=== PATIENT | male | born 1935 | race Caucasian/White ===

== ENCOUNTER 2016-09-05 14:55 | Emergency (ER) | payer MEDICARE, BC ==
--- NOTE | 2016-09-05 22:02 | RAD ---
PA CHEST WITH LEFT RIBS 09/05/16 Comparison is made with the 05/24/16 portable chest film. The heart is normal in size. Dense calcification is seen in the aortic arch. There is no vascular co ngestion, edema, pleural effusion, or pneumothorax. Old fractures of the left fourth and fifth poste rior ribs are noted. There is a fracture of the left sixth rib posteriorly that looks like it may be more acute and I cannot definitely see it on the May film. Old rib fractures are seen in some of the lower left ribs. Degenerative changes are prominent in the left glenohumeral joint. IMPRESSION: Multiple old rib fractures but possibly one acute fracture of the left sixth rib posteriorly. Correl ate with exact site of clinical pain. POS: HOME
== END 2016-09-05 16:10 | disposition home or self-care (01) ==
LOC: BURERS 14:55
DX: S22.42XA Multiple fractures of ribs, left side, initial encounter for closed fracture (principal); F32.9 Major depressive disorder, single episode, unspecified; W19.XXXA Unspecified fall, initial encounter

== ENCOUNTER 2016-10-27 09:20 | Outpatient (CLI) | payer MEDICARE, BC | END 2016-10-27 09:21 | disposition home or self-care (01) | LOC: BURLAB 09:20 | PROVIDERS: ATTEND Internal Medicine Hematology & Oncology | DX: C61 Malignant neoplasm of prostate (principal) | CPT/HCPCS: 36415; 84153 ==

== ENCOUNTER 2017-03-17 19:17 | Outpatient (CLI) | payer MEDICARE, BC | END 2017-03-17 19:18 | disposition home or self-care (01) | LOC: BURLAB 19:17 | PROVIDERS: ATTEND Physician Assistant | DX: N39.0 Urinary tract infection, site not specified (principal) | CPT/HCPCS: 87086 ==

== ENCOUNTER 2017-06-10 13:33 | Emergency (ER) | payer MEDICARE, BC ==
[2017-06-10] MEDS ORDERED: Ondansetron HCl/PF 4 MG/2 ML Vial ONE (13:57)
[2017-06-10 14:07] LABS: #Basophils 0.1 thou/uL (0.0-0.2); #Eosinphils 0.2 thou/uL (0.0-0.7); #Lymphocytes 0.6 thou/uL (1.20-3.40); #Monocytes 0.6 thou/uL (0.11-0.59); #Neutrophils 11.8 thou/uL (1.40-6.50); %Basophils 0.5 % (0.0-1.0); %Eosinophils 1.8 % (0.0-10.0); %Lymphocytes 4.6 % (21.0-51.0); %Monocytes 4.1 % (0.0-10.0); %Neutrophils 89.1 % (42.0-75.0); Hemoglobin 15.7 g/dL (14.0-18.0); Mean Corpuscular HGB CONC 31.7 g/dL (32.0-36.0); Mean Corpuscular Hemoglobin 31.4 pg (27.0-31.0); Mean Corpuscular Volume 98.9 fl (80.0-94.0); Mean Platelet Volume 7.8 fL (7.4-10.4); Platelet Count 183 thou/uL (130-400); RBC Distribution Width 12.9 % (11.5-14.5); White Blood Cell (WBC) Count 13.3 thou/uL (4.8-10.8)
[2017-06-10 14:17] LABS: ALT (SGPT) 18 U/L (8-55); AST (SGOT) 19 U/L (5-34); Alkaline Phosphatase 60 U/L (40-150); Anion Gap 17 mmol/L (10-20); BUN (Urea Nitrogen) 24 mg/dL (8.4-25.7); Bilirubin, Total 0.8 mg/dL (0.2-1.2); Calc. Creatinine Clearance 0 mL/min (70-130); Calcium 9.4 mg/dL (7.8-10.44); Carbon Dioxide 28 mmol/L (23-31); Chloride 100 mmol/L (98-107); Estimated GFR-MDRD 60; Globulin 2.7 g/dL (2.4-3.5); Glucose 165 mg/dL (83-110); Potassium 4.1 mmol/L (3.5-5.1); Protein, Total 6.7 g/dL (5.8-8.1); Sodium 141 mmol/L (136-145)
[2017-06-10 14:19] LABS: CKMB 1.2 ng/mL (0-6.6); Troponin I Less than 0.010 ng/mL (< 0.028)
[2017-06-10 16:07] LABS: Bilirubin Negative (Negative); Blood, Urine Trace (Negative); Clarity Slightly Cloudy (Clear); Glucose, Urine (Dipstick) Negative (Negative); Leukocyte Trace (Negative); Nitrite Negative (Negative); Protein, Urine (Dipstick) 30 mg/dL (Neg-Trace); Specific Gravity, Urine 1.025 (1.005-1.030); Urobilinogen 0.2 mg/dL (0.2-1.0)
[2017-06-10 16:15] LABS: Bacteria/HPF 1+ HPF (None Seen); Crystals/HPF None Seen HPF (Negative); Hyaline Casts/LPF NONE SEEN LPF (0-3 Hyaline); Other Casts/LPF None Seen LPF (0-3 Hyaline); Oval Fat Bodies/HPF None Seen HPF (None Seen); RBC/HPF 0-3 HPF (0-3); Renal Epithelial None Seen HPF (0-3); Sperm/HPF None Seen HPF (None Seen); Squamous Epithelial 0-3 HPF (0-3); Transitional Epithelial NONE SEEN HPF (0-3); Trichomonas/HPF None Seen HPF (None Seen); Yeast-All Forms None Seen HPF (None Seen)
== END 2017-06-10 17:15 | disposition home or self-care (01) ==
LOC: BURERS 13:33
DX: K52.9 Noninfective gastroenteritis and colitis, unspecified (principal); J44.9 Chronic obstructive pulmonary disease, unspecified; F32.9 Major depressive disorder, single episode, unspecified; Z79.899 Other long term (current) drug therapy
CPT/HCPCS: 80053; 81003; 81015; 82553; 84484; 85025; 87077; 87086; 87186; 96361; 96374; J2405

== ENCOUNTER 2017-08-02 20:02 | Emergency (ER) | payer MEDICARE, BC ==
[2017-08-02] MEDS ORDERED: Lidocaine 1% w/Epinephrine 1:100K 30 ML VIAL ONE (20:26)
--- NOTE | 2017-08-02 21:35 | CT ---
CT BRAIN WITHOUT CONTRAST: Date: 08-02-[address] was done and compared with a prior scan of 05-31-13. FINDINGS: The ventricles are normal in size for age and show no shift. No intracranial bleeding or extraaxial h ematoma was seen. There is some minimal deep white matter lucency consistent with mild chronic ischem ic changes. There were no findings of acute stroke, mass, or edema. The calvarium appears intact. The sphenoid sinus and mastoid air cells are clear. The patient has a r ounded cyst in this floor of his left maxillary sinus. IMPRESSION: No acute intracranial finding. POS: HOME
[2017-08-02 21:45] LABS: Bilirubin Negative (Negative); Blood, Urine Negative (Negative); Clarity Clear (Clear); Glucose, Urine (Dipstick) Negative (Negative); Leukocyte Negative (Negative); Nitrite Negative (Negative); Protein, Urine (Dipstick) Negative (Neg-Trace); Specific Gravity, Urine 1.015 (1.005-1.030); Urobilinogen 0.2 mg/dL (0.2-1.0)
--- NOTE | 2017-08-02 21:59 | RAD ---
PORTABLE CHEST: Date: 08-02-17 Comparison: 06-10-17 FINDINGS: The heart is normal in size on this portable film done at 2026. The mediastinum shows no widening or shift. The lungs are fully inflated and clear. No effusions or infiltrates were seen. No gross acute fractures were indicated. Old healed rib fractures of the left ribs were noted as before. Degenerativ e changes are present in the shoulders, particularly the right. IMPRESSION: No acute thoracic finding. POS: HOME
[2017-08-02] MEDS ORDERED: Bacitracin Zinc 1 Packet ONE (22:04)
== END 2017-08-02 22:18 | disposition home or self-care (01) ==
LOC: BURERS 20:02
DX: S01.111A Laceration without foreign body of right eyelid and periocular area, initial encounter (principal); T14.8XXA Other injury of unspecified body region, initial encounter; I10 Essential (primary) hypertension; J44.9 Chronic obstructive pulmonary disease, unspecified; M10.9 Gout, unspecified; F32.9 Major depressive disorder, single episode, unspecified; Z85.46 Personal history of malignant neoplasm of prostate; Z79.52 Long term (current) use of systemic steroids; Z79.899 Other long term (current) drug therapy; W01.0XXA Fall on same level from slipping, tripping and stumbling without subsequent striking against object, initial encounter; Y93.01 Activity, walking, marching and hiking
CPT/HCPCS: 51701; 70450; 71045; 81003; 87086; 90471; J2001

== ENCOUNTER 2017-11-29 08:55 | Outpatient (CLI) | payer MEDICARE, BC ==
--- NOTE | 2017-11-29 19:40 | RAD ---
RIGHT RIBS WITH PA CHEST: Date: 11/29/17 Comparison is made with the 08/02/17 study. FINDINGS: The heart is normal in size. The mediastinum shows no widening or shift. The lungs are fully inflated and clear. There is no sign of pneumothorax or significant pleural effusion. Views of the right ribs fail to demonstrate a definite rib fracture. There is a small amount of pleur al thickening along the right lateral hemithorax that can sometimes be a secondary sign of an occult rib injury. There is a little irregularity of the cortex of the right 7th rib, but it is not definite ly acute. IMPRESSION: No definite acute thoracic findings. POS: HOME
== END 2017-11-29 08:56 | disposition home or self-care (01) ==
LOC: BURRAD 08:55
PROVIDERS: ATTEND Family Medicine
DX: R07.81 Pleurodynia (principal)

== ENCOUNTER 2018-02-04 07:34 | Emergency (ER) | payer MEDICARE, BC ==
--- NOTE | 2018-02-04 12:58 | RAD ---
CHEST 2 VIEWS: Date: 02/04/18 Comparison is made with a prior study of 11/29/17. FINDINGS: The heart is normal in size. The mediastinum shows no widening or shift. The aorta is tortuous and ca lcified as usual. There are no lobar infiltrates or effusions. The lungs are mildly hyperexpanded. On the lateral view, one of the mid thoracic vertebra seems very slightly compressed, but looking back at a 2012 chest x-ray, it was exactly the same, so this is not a new finding. There is prominent pleural thickening along the left lateral chest wall. This is seen on a more recen t film of 11/29/17, so it is not new. There appear to have been old rib fractures on the left which h ave healed. Subtle acute fractures would be missed by this study. There is certainly no pneumothorax or significant pleural effusion. IMPRESSION: Chronic changes, but no definite acute findings. Subtle rib fractures would be missed. POS: [facility]
== END 2018-02-04 08:39 | disposition home or self-care (01) ==
LOC: BURERS 07:34
DX: S20.212A Contusion of left front wall of thorax, initial encounter (principal); J44.9 Chronic obstructive pulmonary disease, unspecified; I47.1 Supraventricular tachycardia; I10 Essential (primary) hypertension; F32.9 Major depressive disorder, single episode, unspecified; Z79.899 Other long term (current) drug therapy; W19.XXXA Unspecified fall, initial encounter
CPT/HCPCS: 71046; 93005; 94799

== ENCOUNTER 2018-04-21 13:12 | Inpatient (IN) | payer MEDICARE, BC ==
[2018-04-21] MEDS ORDERED: Ondansetron ODT 4 MG TAB PO PRN (16:46)
[2018-04-21] MEDS ORDERED: PROVENTIL INHALER 6.7 G (200 INHALATIONS) INH PRN (16:46)
[2018-04-21] MEDS ORDERED: Cyclobenzaprine 10 MG TAB PO PRN (16:46)
[2018-04-21] MEDS ORDERED: Gabapentin 100 MG CAP PO PRN (17:09)
[2018-04-21] MEDS ORDERED: Mometasone/Formoterol 60 PUFF AER INH PRN (17:30)
[2018-04-21] MEDS: Acetaminophen 500 MG TAB PO SCH ×2 (18:14→22:34)
[2018-04-21] MEDS ORDERED: traMADol HCl 50 MG TAB PO SCH (21:00)
[2018-04-21] MEDS ORDERED: Gabapentin 100 MG CAP PO SCH (21:00)
[2018-04-21] MEDS: Ferrous Sulfate 325 MG TAB PO SCH (21:02)
[2018-04-21] MEDS: traMADol HCl 50 MG TAB PO SCH (21:04)
[2018-04-21] MEDS: Famotidine 20 MG TAB PO SCH (21:05)
[2018-04-21] MEDS: Senokot S 8.6-50 MG TAB PO SCH (21:05)
[2018-04-21] MEDS: Ibuprofen 800 MG TAB PO SCH (22:32)
[2018-04-22] MEDS ORDERED: traMADol HCl 50 MG TAB ONE (03:25)
[2018-04-22] MEDS ORDERED: Abiraterone Acetate [Zytiga] 1,000 MG PO SCH (09:00)
[2018-04-22 11:31] LABS: #Basophils 0.1 thou/uL (0.0-0.2); #Eosinphils 0.6 thou/uL (0.0-0.7); #Lymphocytes 0.9 thou/uL (1.20-3.40); #Monocytes 0.9 thou/uL (0.11-0.59); #Neutrophils 4.9 thou/uL (1.40-6.50); %Basophils 1.2 % (0.0-1.0); %Eosinophils 8.2 % (0.0-10.0); %Lymphocytes 12.1 % (21.0-51.0); %Monocytes 12.3 % (0.0-10.0); %Neutrophils 66.2 % (42.0-75.0); Hemoglobin 10.8 g/dL (14.0-18.0); Mean Corpuscular HGB CONC 32.1 g/dL (32.0-36.0); Mean Corpuscular Hemoglobin 30.5 pg (27.0-31.0); Mean Corpuscular Volume 95.1 fL (78.0-98.0); Mean Platelet Volume 8.6 fL (7.4-10.4); Platelet Count 139 thou/uL (130-400); RBC Distribution Width 12.9 % (11.5-14.5); Red Blood Cell (RBC) Count 3.56 mill/uL (4.70-6.10); White Blood Cell (WBC) Count 7.5 thou/uL (4.8-10.8)
[2018-04-22 11:32] LABS: ALT (SGPT) 19 U/L (8-55); AST (SGOT) 19 U/L (5-34); Albumin 3.3 g/dL (3.4-4.8); Alkaline Phosphatase 63 U/L (40-150); Anion Gap 10 mmol/L (10-20); BUN (Urea Nitrogen) 25 mg/dL (8.4-25.7); Bilirubin, Total 0.7 mg/dL (0.2-1.2); Calc. Creatinine Clearance 98 mL/min (70-130); Calcium 9.5 mg/dL (7.8-10.44); Carbon Dioxide 35 mmol/L (23-31); Chloride 95 mmol/L (98-107); Estimated GFR-MDRD Greater than 90; Globulin 2.4 g/dL (2.4-3.5); Glucose 103 mg/dL (83-110); Potassium 5.3 mmol/L (3.5-5.1); Protein, Total 5.7 g/dL (5.8-8.1); Sodium 135 mmol/L (136-145)
[2018-04-22] MEDS: Polyethylene Glycol 3350 17 GM Packet PO SCH (11:35)
[2018-04-22] MEDS ORDERED: traMADol HCl 50 MG TAB PO PRN (11:35)
[2018-04-22] MEDS: Loratadine 10 MG TAB PO SCH (11:36)
[2018-04-22] MEDS: Senokot 8.6 MG TAB PO SCH (11:36)
[2018-04-22] MEDS: predniSONE 10 MG TAB PO SCH (11:37)
[2018-04-22] MEDS: Multivit, Therapeutic 1 TAB PO SCH (11:37)
[2018-04-22] MEDS: Venlafaxine XR 37.5 MG CAP PO SCH (11:38)
[2018-04-22] MEDS: Famotidine 20 MG TAB PO SCH ×2 (11:38→21:06)
[2018-04-22] MEDS: Allopurinol 100 MG TAB PO SCH (11:38)
[2018-04-22] MEDS: Enoxaparin Sodium 40 MG/0.4 ML SYRINGE SC SCH (11:40)
[2018-04-22] MEDS: Ibuprofen 800 MG TAB PO SCH ×3 (11:51→21:06)
[2018-04-22] MEDS: Acetaminophen 500 MG TAB PO SCH ×3 (11:53→18:25)
[2018-04-22] MEDS: traMADol HCl 50 MG TAB PO SCH (11:55)
[2018-04-22] MEDS: Abiraterone Acetate [Zytiga] 1,000 MG PO SCH (14:54)
[2018-04-22] MEDS: Calcium Carbonate + Vit D 1 TAB PO SCH (14:57)
[2018-04-22] MEDS: diphenhydrAMINE 25 MG CAP PO SCH (21:06)
[2018-04-22] MEDS: Senokot S 8.6-50 MG TAB PO SCH (21:07)
[2018-04-22] MEDS: Ferrous Sulfate 325 MG TAB PO SCH (21:07)
[2018-04-23] MEDS: Acetaminophen 500 MG TAB PO SCH ×4 (00:17→19:15)
[2018-04-23] MEDS: Ibuprofen 800 MG TAB PO SCH ×3 (06:18→21:03)
[2018-04-23] MEDS: Venlafaxine XR 37.5 MG CAP PO SCH (09:58)
[2018-04-23] MEDS: Senokot 8.6 MG TAB PO SCH (09:58)
[2018-04-23] MEDS: Allopurinol 100 MG TAB PO SCH (09:59)
[2018-04-23] MEDS: Calcium Carbonate + Vit D 1 TAB PO SCH (09:59)
[2018-04-23] MEDS: Multivit, Therapeutic 1 TAB PO SCH (09:59)
[2018-04-23] MEDS: Loratadine 10 MG TAB PO SCH (10:00)
[2018-04-23] MEDS: Famotidine 20 MG TAB PO SCH ×2 (10:00→21:02)
[2018-04-23] MEDS: predniSONE 10 MG TAB PO SCH (10:00)
[2018-04-23] MEDS: Polyethylene Glycol 3350 17 GM Packet PO SCH (10:01)
[2018-04-23] MEDS: Enoxaparin Sodium 40 MG/0.4 ML SYRINGE SC SCH (10:04)
[2018-04-23] MEDS: Abiraterone Acetate [Zytiga] 1,000 MG PO SCH (14:30)
[2018-04-23] MEDS: Senokot S 8.6-50 MG TAB PO SCH (21:02)
[2018-04-23] MEDS: diphenhydrAMINE 25 MG CAP PO SCH (21:02)
[2018-04-23] MEDS: Ferrous Sulfate 325 MG TAB PO SCH (21:05)
[2018-04-24] MEDS: Acetaminophen 500 MG TAB PO SCH ×4 (00:08→18:34)
[2018-04-24] MEDS: Ibuprofen 800 MG TAB PO SCH (05:37)
[2018-04-24] MEDS: Polyethylene Glycol 3350 17 GM Packet PO SCH (09:06)
[2018-04-24] MEDS: Calcium Carbonate + Vit D 1 TAB PO SCH (09:06)
[2018-04-24] MEDS: Enoxaparin Sodium 40 MG/0.4 ML SYRINGE SC SCH (09:06)
[2018-04-24] MEDS: Venlafaxine XR 37.5 MG CAP PO SCH (09:07)
[2018-04-24] MEDS: Multivit, Therapeutic 1 TAB PO SCH (09:08)
[2018-04-24] MEDS: Senokot 8.6 MG TAB PO SCH (09:08)
[2018-04-24] MEDS: Allopurinol 100 MG TAB PO SCH (09:08)
[2018-04-24] MEDS: predniSONE 10 MG TAB PO SCH (09:08)
[2018-04-24] MEDS: Loratadine 10 MG TAB PO SCH (09:08)
[2018-04-24] MEDS: Famotidine 20 MG TAB PO SCH ×2 (09:09→21:42)
[2018-04-24] MEDS: Ibuprofen 200 MG TAB PO SCH ×2 (14:51→21:42)
[2018-04-24] MEDS: Abiraterone Acetate [Zytiga] 1,000 MG PO SCH (14:52)
[2018-04-24] MEDS: Senokot S 8.6-50 MG TAB PO SCH (21:42)
[2018-04-24] MEDS: diphenhydrAMINE 25 MG CAP PO SCH (21:42)
[2018-04-24] MEDS: Ferrous Sulfate 325 MG TAB PO SCH (21:42)
[2018-04-25] MEDS: Acetaminophen 500 MG TAB PO SCH ×5 (01:17→22:57)
[2018-04-25 05:50] LABS: #Basophils 0.1 thou/uL (0.0-0.2); #Eosinphils 0.6 thou/uL (0.0-0.7); #Lymphocytes 1.7 thou/uL (1.20-3.40); #Monocytes 0.9 thou/uL (0.11-0.59); #Neutrophils 6.1 thou/uL (1.40-6.50); %Eosinophils 6.7 % (0.0-10.0); %Lymphocytes 17.6 % (21.0-51.0); %Monocytes 9.7 % (0.0-10.0); Hemoglobin 12.1 g/dL (14.0-18.0); Mean Corpuscular HGB CONC 31.8 g/dL (32.0-36.0); Mean Corpuscular Hemoglobin 30.6 pg (27.0-31.0); Mean Corpuscular Volume 96.3 fL (78.0-98.0); Mean Platelet Volume 8.2 fL (7.4-10.4); Platelet Count 259 thou/uL (130-400); RBC Distribution Width 13.1 % (11.5-14.5); Red Blood Cell (RBC) Count 3.96 mill/uL (4.70-6.10); White Blood Cell (WBC) Count 9.4 thou/uL (4.8-10.8)
[2018-04-25 06:25] LABS: BUN (Urea Nitrogen) 17 mg/dL (8.4-25.7); Bilirubin, Total 0.5 mg/dL (0.2-1.2); Calc. Creatinine Clearance 93 mL/min (70-130); Calcium 9.5 mg/dL (7.8-10.44); Carbon Dioxide 35 mmol/L (23-31); Chloride 97 mmol/L (98-107); Estimated GFR-MDRD 84; Glucose 98 mg/dL (83-110); Potassium 4.6 mmol/L (3.5-5.1); Sodium 139 mmol/L (136-145)
[2018-04-25 06:26] LABS: ALT (SGPT) 20 U/L (8-55); AST (SGOT) 17 U/L (5-34); Albumin 3.6 g/dL (3.4-4.8); Alkaline Phosphatase 132 U/L (40-150); Globulin 2.6 g/dL (2.4-3.5); Protein, Total 6.2 g/dL (5.8-8.1)
[2018-04-25 06:27] LABS: Anion Gap 11 mmol/L (10-20)
[2018-04-25] MEDS: Ibuprofen 200 MG TAB PO SCH ×3 (06:41→22:54)
[2018-04-25] MEDS: Allopurinol 100 MG TAB PO SCH (09:31)
[2018-04-25] MEDS: Venlafaxine XR 37.5 MG CAP PO SCH (09:32)
[2018-04-25] MEDS: predniSONE 10 MG TAB PO SCH (09:32)
[2018-04-25] MEDS: Polyethylene Glycol 3350 17 GM Packet PO SCH (09:32)
[2018-04-25] MEDS: Famotidine 20 MG TAB PO SCH ×2 (09:32→21:03)
[2018-04-25] MEDS: Multivit, Therapeutic 1 TAB PO SCH (09:32)
[2018-04-25] MEDS: Senokot 8.6 MG TAB PO SCH (09:32)
[2018-04-25] MEDS: Loratadine 10 MG TAB PO SCH (09:32)
[2018-04-25] MEDS: Enoxaparin Sodium 40 MG/0.4 ML SYRINGE SC SCH (09:32)
[2018-04-25] MEDS: Calcium Carbonate + Vit D 1 TAB PO SCH (09:32)
[2018-04-25] MEDS: Abiraterone Acetate [Zytiga] 1,000 MG PO SCH (15:20)
[2018-04-25] MEDS: diphenhydrAMINE 25 MG CAP PO SCH (20:58)
[2018-04-25] MEDS: Senokot S 8.6-50 MG TAB PO SCH (20:58)
[2018-04-25] MEDS: Ferrous Sulfate 325 MG TAB PO SCH (20:59)
[2018-04-26] MEDS: Acetaminophen 500 MG TAB PO SCH ×3 (05:57→17:42)
[2018-04-26] MEDS: Ibuprofen 200 MG TAB PO SCH ×4 (06:03→21:31)
[2018-04-26] MEDS: Venlafaxine XR 37.5 MG CAP PO SCH (08:33)
[2018-04-26] MEDS: Senokot 8.6 MG TAB PO SCH (08:33)
[2018-04-26] MEDS: Allopurinol 100 MG TAB PO SCH (08:33)
[2018-04-26] MEDS: Calcium Carbonate + Vit D 1 TAB PO SCH (08:33)
[2018-04-26] MEDS: predniSONE 10 MG TAB PO SCH (08:34)
[2018-04-26] MEDS: Multivit, Therapeutic 1 TAB PO SCH (08:34)
[2018-04-26] MEDS: Polyethylene Glycol 3350 17 GM Packet PO SCH (08:34)
[2018-04-26] MEDS: Loratadine 10 MG TAB PO SCH (08:34)
[2018-04-26] MEDS: Famotidine 20 MG TAB PO SCH ×2 (08:34→21:30)
[2018-04-26] MEDS: Enoxaparin Sodium 40 MG/0.4 ML SYRINGE SC SCH (08:34)
[2018-04-26] MEDS ORDERED: Furosemide 20 MG TAB PO SCH (12:00)
[2018-04-26] MEDS: Abiraterone Acetate [Zytiga] 250 MG PO SCH (14:43)
[2018-04-26] MEDS: Senokot S 8.6-50 MG TAB PO SCH (21:30)
[2018-04-26] MEDS: diphenhydrAMINE 25 MG CAP PO SCH (21:31)
[2018-04-26] MEDS: Ferrous Sulfate 325 MG TAB PO SCH (21:31)
[2018-04-27] MEDS: Acetaminophen 500 MG TAB PO SCH ×4 (02:57→17:37)
[2018-04-27] MEDS: Ibuprofen 200 MG TAB PO SCH ×3 (05:54→21:24)
[2018-04-27] MEDS: Polyethylene Glycol 3350 17 GM Packet PO SCH (09:33)
[2018-04-27] MEDS: Venlafaxine XR 37.5 MG CAP PO SCH (09:33)
[2018-04-27] MEDS: Calcium Carbonate + Vit D 1 TAB PO SCH (09:34)
[2018-04-27] MEDS: Senokot 8.6 MG TAB PO SCH (09:34)
[2018-04-27] MEDS: Allopurinol 100 MG TAB PO SCH (09:35)
[2018-04-27] MEDS: Multivit, Therapeutic 1 TAB PO SCH (09:36)
[2018-04-27] MEDS: Loratadine 10 MG TAB PO SCH (09:36)
[2018-04-27] MEDS: predniSONE 10 MG TAB PO SCH (09:36)
[2018-04-27] MEDS: Enoxaparin Sodium 40 MG/0.4 ML SYRINGE SC SCH (09:38)
[2018-04-27] MEDS: Furosemide 20 MG TAB PO SCH (09:38)
[2018-04-27] MEDS: Famotidine 20 MG TAB PO SCH ×2 (09:38→21:24)
[2018-04-27] MEDS: Abiraterone Acetate [Zytiga] 250 MG PO SCH (13:57)
[2018-04-27] MEDS: Ferrous Sulfate 325 MG TAB PO SCH (21:24)
[2018-04-27] MEDS: Senokot S 8.6-50 MG TAB PO SCH (21:24)
[2018-04-27] MEDS: diphenhydrAMINE 25 MG CAP PO SCH (21:24)
[2018-04-28] MEDS: Acetaminophen 500 MG TAB PO SCH ×5 (02:18→23:42)
[2018-04-28] MEDS: Ibuprofen 200 MG TAB PO SCH ×3 (05:52→21:25)
[2018-04-28] MEDS: Allopurinol 100 MG TAB PO SCH (09:17)
[2018-04-28] MEDS: Venlafaxine XR 37.5 MG CAP PO SCH (09:17)
[2018-04-28] MEDS: Senokot 8.6 MG TAB PO SCH (09:18)
[2018-04-28] MEDS: predniSONE 10 MG TAB PO SCH (09:19)
[2018-04-28] MEDS: Loratadine 10 MG TAB PO SCH (09:19)
[2018-04-28] MEDS: Famotidine 20 MG TAB PO SCH ×2 (09:19→21:25)
[2018-04-28] MEDS: Furosemide 20 MG TAB PO SCH (09:19)
[2018-04-28] MEDS: Calcium Carbonate + Vit D 1 TAB PO SCH (09:19)
[2018-04-28] MEDS: Polyethylene Glycol 3350 17 GM Packet PO SCH (09:20)
[2018-04-28] MEDS: Enoxaparin Sodium 40 MG/0.4 ML SYRINGE SC SCH (09:20)
[2018-04-28] MEDS: Multivit, Therapeutic 1 TAB PO SCH (09:20)
[2018-04-28] MEDS: Abiraterone Acetate [Zytiga] 250 MG PO SCH (14:28)
[2018-04-28] MEDS: Senokot S 8.6-50 MG TAB PO SCH (21:25)
[2018-04-28] MEDS: diphenhydrAMINE 25 MG CAP PO SCH (21:25)
[2018-04-28] MEDS: Ferrous Sulfate 325 MG TAB PO SCH (21:25)
[2018-04-29] MEDS: Acetaminophen 500 MG TAB PO SCH ×3 (06:03→17:49)
[2018-04-29] MEDS: Ibuprofen 200 MG TAB PO SCH ×3 (06:03→22:09)
[2018-04-29] MEDS: Calcium Carbonate + Vit D 1 TAB PO SCH (09:26)
[2018-04-29] MEDS: Allopurinol 100 MG TAB PO SCH (09:27)
[2018-04-29] MEDS: Senokot 8.6 MG TAB PO SCH (09:27)
[2018-04-29] MEDS: Loratadine 10 MG TAB PO SCH (09:27)
[2018-04-29] MEDS: Venlafaxine XR 37.5 MG CAP PO SCH (09:28)
[2018-04-29] MEDS: predniSONE 10 MG TAB PO SCH (09:28)
[2018-04-29] MEDS: Famotidine 20 MG TAB PO SCH ×2 (09:29→22:10)
[2018-04-29] MEDS: Multivit, Therapeutic 1 TAB PO SCH (09:29)
[2018-04-29] MEDS: Furosemide 20 MG TAB PO SCH (09:29)
[2018-04-29] MEDS: Enoxaparin Sodium 40 MG/0.4 ML SYRINGE SC SCH (09:29)
[2018-04-29] MEDS: Polyethylene Glycol 3350 17 GM Packet PO SCH (09:29)
[2018-04-29] MEDS: Abiraterone Acetate [Zytiga] 250 MG PO SCH (14:59)
[2018-04-29 17:47] VITALS: BMI 34.7
[2018-04-29] MEDS: Senokot S 8.6-50 MG TAB PO SCH (22:09)
[2018-04-29] MEDS: diphenhydrAMINE 25 MG CAP PO SCH (22:09)
[2018-04-29] MEDS: Ferrous Sulfate 325 MG TAB PO SCH (22:10)
[2018-04-30] MEDS: Acetaminophen 500 MG TAB PO SCH ×5 (00:11→23:31)
[2018-04-30] MEDS: Ibuprofen 200 MG TAB PO SCH ×3 (05:53→20:30)
[2018-04-30] MEDS: Polyethylene Glycol 3350 17 GM Packet PO SCH (09:18)
[2018-04-30] MEDS: Enoxaparin Sodium 40 MG/0.4 ML SYRINGE SC SCH (09:19)
[2018-04-30] MEDS: Venlafaxine XR 37.5 MG CAP PO SCH (09:20)
[2018-04-30] MEDS: Furosemide 20 MG TAB PO SCH (09:20)
[2018-04-30] MEDS: Calcium Carbonate + Vit D 1 TAB PO SCH (09:20)
[2018-04-30] MEDS: Allopurinol 100 MG TAB PO SCH (09:21)
[2018-04-30] MEDS: Senokot 8.6 MG TAB PO SCH (09:21)
[2018-04-30] MEDS: Famotidine 20 MG TAB PO SCH ×2 (09:22→20:30)
[2018-04-30] MEDS: predniSONE 10 MG TAB PO SCH (09:22)
[2018-04-30] MEDS: Multivit, Therapeutic 1 TAB PO SCH (09:22)
[2018-04-30] MEDS: Loratadine 10 MG TAB PO SCH (09:24)
[2018-04-30] MEDS: Abiraterone Acetate [Zytiga] 250 MG PO SCH (14:08)
[2018-04-30] MEDS: Ferrous Sulfate 325 MG TAB PO SCH (20:30)
[2018-04-30] MEDS: diphenhydrAMINE 25 MG CAP PO SCH (20:30)
[2018-04-30] MEDS: Senokot S 8.6-50 MG TAB PO SCH (20:30)
[2018-05-01] MEDS: Ibuprofen 200 MG TAB PO SCH ×2 (05:49→14:36)
[2018-05-01] MEDS: Acetaminophen 500 MG TAB PO SCH ×4 (05:49→23:25)
[2018-05-01] MEDS: Polyethylene Glycol 3350 17 GM Packet PO SCH (08:18)
[2018-05-01] MEDS: Loratadine 10 MG TAB PO SCH (08:18)
[2018-05-01] MEDS: Calcium Carbonate + Vit D 1 TAB PO SCH (08:18)
[2018-05-01] MEDS: Multivit, Therapeutic 1 TAB PO SCH (08:18)
[2018-05-01] MEDS: predniSONE 10 MG TAB PO SCH (08:18)
[2018-05-01] MEDS: Venlafaxine XR 37.5 MG CAP PO SCH (08:18)
[2018-05-01] MEDS: Allopurinol 100 MG TAB PO SCH (08:18)
[2018-05-01] MEDS: Furosemide 20 MG TAB PO SCH (08:18)
[2018-05-01] MEDS: Senokot 8.6 MG TAB PO SCH (08:18)
[2018-05-01] MEDS: Famotidine 20 MG TAB PO SCH ×2 (08:19→21:03)
[2018-05-01] MEDS: Enoxaparin Sodium 40 MG/0.4 ML SYRINGE SC SCH (08:19)
[2018-05-01] MEDS: Abiraterone Acetate [Zytiga] 250 MG PO SCH (14:35)
[2018-05-01 19:48] LABS: #Basophils 0.1 thou/uL (0.0-0.2); #Eosinphils 0.1 thou/uL (0.0-0.7); #Lymphocytes 1.3 thou/uL (1.20-3.40); #Monocytes 0.5 thou/uL (0.11-0.59); #Neutrophils 9.1 thou/uL (1.40-6.50); %Basophils 0.7 % (0.0-1.0); %Eosinophils 0.8 % (0.0-10.0); %Lymphocytes 11.7 % (21.0-51.0); %Monocytes 4.8 % (0.0-10.0); Eosinophils 3 % (0-10); Hemoglobin 11.3 g/dL (14.0-18.0); Lymphocytes 18 % (21-51); MDiff Complete? YES; Mean Corpuscular HGB CONC 32.9 g/dL (32.0-36.0); Mean Corpuscular Hemoglobin 31.3 pg (27.0-31.0); Mean Platelet Volume 6.6 fL (7.4-10.4); Monocytes 4 % (0-10); Neutrophil 75 % (42-75); Platelet Count 381 thou/uL (130-400); RBC Distribution Width 13.7 % (11.5-14.5); Small Platelets SLIGHT; White Blood Cell (WBC) Count 11.1 thou/uL (4.8-10.8)
[2018-05-01] MEDS: diphenhydrAMINE 25 MG CAP PO SCH (21:02)
[2018-05-01] MEDS: Ferrous Sulfate 325 MG TAB PO SCH (21:03)
[2018-05-02] MEDS: Acetaminophen 500 MG TAB PO SCH ×4 (06:00→23:52)
[2018-05-02] MEDS: Multivit, Therapeutic 1 TAB PO SCH (08:20)
[2018-05-02] MEDS: Calcium Carbonate + Vit D 1 TAB PO SCH (08:20)
[2018-05-02] MEDS: Furosemide 20 MG TAB PO SCH (08:20)
[2018-05-02] MEDS: Loratadine 10 MG TAB PO SCH (08:20)
[2018-05-02] MEDS: predniSONE 10 MG TAB PO SCH (08:20)
[2018-05-02] MEDS: Allopurinol 100 MG TAB PO SCH (08:20)
[2018-05-02] MEDS: Venlafaxine XR 37.5 MG CAP PO SCH (08:20)
[2018-05-02] MEDS: Polyethylene Glycol 3350 17 GM Packet PO SCH (08:21)
[2018-05-02] MEDS: Famotidine 20 MG TAB PO SCH ×2 (08:21→20:25)
[2018-05-02] MEDS: Abiraterone Acetate [Zytiga] 250 MG PO SCH (14:20)
[2018-05-02] MEDS: diphenhydrAMINE 25 MG CAP PO SCH (20:24)
[2018-05-02] MEDS: Ferrous Sulfate 325 MG TAB PO SCH (20:25)
[2018-05-03] MEDS: Acetaminophen 500 MG TAB PO SCH ×3 (05:51→17:32)
[2018-05-03] MEDS: Calcium Carbonate + Vit D 1 TAB PO SCH (08:30)
[2018-05-03] MEDS: Loratadine 10 MG TAB PO SCH (08:30)
[2018-05-03] MEDS: predniSONE 10 MG TAB PO SCH (08:30)
[2018-05-03] MEDS: Multivit, Therapeutic 1 TAB PO SCH (08:30)
[2018-05-03] MEDS: Venlafaxine XR 37.5 MG CAP PO SCH (08:30)
[2018-05-03] MEDS: Allopurinol 100 MG TAB PO SCH (08:30)
[2018-05-03] MEDS: Furosemide 20 MG TAB PO SCH (08:31)
[2018-05-03] MEDS: Polyethylene Glycol 3350 17 GM Packet PO SCH (08:31)
[2018-05-03] MEDS: Famotidine 20 MG TAB PO SCH ×2 (08:31→20:25)
[2018-05-03] MEDS: Abiraterone Acetate [Zytiga] 250 MG PO SCH (15:18)
[2018-05-03] MEDS: Ferrous Sulfate 325 MG TAB PO SCH (20:25)
[2018-05-03] MEDS: diphenhydrAMINE 25 MG CAP PO SCH (20:25)
[2018-05-04] MEDS: Acetaminophen 500 MG TAB PO SCH ×3 (00:05→12:36)
[2018-05-04 06:19] VITALS: BP 151/70; TEMP 98.3
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
[2018-05-04] MEDS: Polyethylene Glycol 3350 17 GM Packet PO SCH (09:20)
[2018-05-04] MEDS: Multivit, Therapeutic 1 TAB PO SCH (09:21)
[2018-05-04] MEDS: Furosemide 20 MG TAB PO SCH (09:21)
[2018-05-04] MEDS: Venlafaxine XR 37.5 MG CAP PO SCH (09:21)
[2018-05-04] MEDS: Allopurinol 100 MG TAB PO SCH (09:21)
[2018-05-04] MEDS: Famotidine 20 MG TAB PO SCH (09:21)
[2018-05-04] MEDS: Calcium Carbonate + Vit D 1 TAB PO SCH (09:22)
[2018-05-04] MEDS: Loratadine 10 MG TAB PO SCH (09:22)
[2018-05-04] MEDS: predniSONE 10 MG TAB PO SCH (09:22)
[2018-05-04] MEDS: Abiraterone Acetate [Zytiga] 250 MG PO SCH (14:40)
== END 2018-05-04 14:35 | disposition home or self-care (01) | DRG 949 ==
LOC: BURMED 13:58
PROVIDERS: ADMIT Family Medicine; ATTEND Family Medicine
DX: S20.212D Contusion of left front wall of thorax, subsequent encounter (principal); E87.1 Hypo-osmolality and hyponatremia; K62.5 Hemorrhage of anus and rectum; S22.41XD Multiple fractures of ribs, right side, subsequent encounter for fracture with routine healing; R26.81 Unsteadiness on feet; S20.312D Abrasion of left front wall of thorax, subsequent encounter; T14.8XXD Other injury of unspecified body region, subsequent encounter; J44.9 Chronic obstructive pulmonary disease, unspecified; C61 Malignant neoplasm of prostate; I10 Essential (primary) hypertension; T40.4X5A Adverse effect of other synthetic narcotics, initial encounter; T42.6X5A Adverse effect of other antiepileptic and sedative-hypnotic drugs, initial encounter; R09.02 Hypoxemia; F32.9 Major depressive disorder, single episode, unspecified; E66.3 Overweight; Z68.34 Body mass index [BMI] 34.0-34.9, adult
CPT/HCPCS: 36415; 80053; 82607; 84153; 84443; 85025; G8978-GP-CL; G8979-GP-CI; G8987-GP-CL; G8988-GP-CJ; J1650; J7512; J7620

== ENCOUNTER 2018-07-29 11:08 | Emergency (ER) | payer MEDICARE, BC ==
[2018-07-29] MEDS ORDERED: cefTRIAXone\\ROCEPHIN 1 GM VIAL ONE (11:55)
[2018-07-29] MEDS ORDERED: predniSONE 20 MG TAB ONE (11:55)
[2018-07-29 11:59] LABS: #Basophils 0.2 thou/uL (0.0-0.2); #Eosinphils 0.5 thou/uL (0.0-0.7); #Lymphocytes 0.9 thou/uL (1.20-3.40); #Monocytes 0.9 thou/uL (0.11-0.59); #Neutrophils 9.7 thou/uL (1.40-6.50); %Basophils 1.3 % (0.0-1.0); %Eosinophils 4.1 % (0.0-10.0); %Lymphocytes 7.2 % (21.0-51.0); %Monocytes 7.4 % (0.0-10.0); %Neutrophils 80.1 % (42.0-75.0); Hemoglobin 13.6 g/dL (14.0-18.0); Mean Corpuscular HGB CONC 32.2 g/dL (32.0-36.0); Mean Corpuscular Hemoglobin 30.9 pg (27.0-31.0); Mean Corpuscular Volume 96.2 fL (78.0-98.0); Mean Platelet Volume 7.2 fL (7.4-10.4); Platelet Count 238 thou/uL (130-400); RBC Distribution Width 13.6 % (11.5-14.5); Red Blood Cell (RBC) Count 4.39 mill/uL (4.70-6.10); White Blood Cell (WBC) Count 12.1 thou/uL (4.8-10.8)
[2018-07-29 12:15] LABS: ALT (SGPT) 16 U/L (8-55); AST (SGOT) 18 U/L (5-34); Albumin 3.8 g/dL (3.4-4.8); Alkaline Phosphatase 78 U/L (40-150); Anion Gap 15 mmol/L (10-20); BUN (Urea Nitrogen) 16 mg/dL (8.4-25.7); Bilirubin, Total 0.6 mg/dL (0.2-1.2); Calc. Creatinine Clearance 0 mL/min (70-130); Carbon Dioxide 31 mmol/L (23-31); Chloride 99 mmol/L (98-107); Estimated GFR-MDRD 81; Globulin 2.5 g/dL (2.4-3.5); Glucose 121 mg/dL (83-110); Potassium 4.5 mmol/L (3.5-5.1); Protein, Total 6.3 g/dL (5.8-8.1); Sodium 140 mmol/L (136-145)
--- NOTE | 2018-07-29 18:10 | RAD ---
CHEST TWO VIEWS: 07/29/18 Comparison is made with a 04/18/18 study. The cardiac size is stable. There is no vascular congestion, edema, or pleural effusion. No acute inf iltrate was appreciated. Calcification is seen in the aortic arch. Old healed rib fractures are noted in the left upper chest. IMPRESSION: No acute thoracic finding. POS: HOME
== END 2018-07-29 14:06 | disposition home or self-care (01) ==
LOC: BURERS 11:08
DX: J18.1 Lobar pneumonia, unspecified organism (principal); J20.9 Acute bronchitis, unspecified; M10.9 Gout, unspecified; J44.9 Chronic obstructive pulmonary disease, unspecified; F17.220 Nicotine dependence, chewing tobacco, uncomplicated; Z79.899 Other long term (current) drug therapy
CPT/HCPCS: 71046; 80053; 83880; 84484; 85025; 87040; 93005; 96365; J0696; J7506; J7620

== ENCOUNTER 2018-10-08 09:34 | Emergency (ER) | payer MEDICARE ==
--- NOTE | 2018-10-08 10:12 | RAD ---
PORTABLE CHEST: Date: 10/08/18 COMPARISON: 04/18/18 study. HISTORY: Dyspnea. Shortness of breath. FINDINGS: Heart size is within normal limits for portable technique. There are some atherosclerotic changes of the aorta. The lungs are clear of infiltrates. IMPRESSION: No active intrathoracic disease. POS: [facility]
[2018-10-08 10:15] LABS: #Basophils 0.1 thou/uL (0.0-0.2); #Eosinphils 0.5 thou/uL (0.0-0.7); #Lymphocytes 1.4 thou/uL (1.20-3.40); #Monocytes 1.2 thou/uL (0.11-0.59); #Neutrophils 7.8 thou/uL (1.40-6.50); %Basophils 1.2 % (0.0-1.0); %Eosinophils 4.9 % (0.0-10.0); %Lymphocytes 12.9 % (21.0-51.0); %Monocytes 10.8 % (0.0-10.0); %Neutrophils 70.3 % (42.0-75.0); Hemoglobin 12.6 g/dL (14.0-18.0); Mean Corpuscular HGB CONC 31.3 g/dL (32.0-36.0); Mean Corpuscular Hemoglobin 31.1 pg (27.0-31.0); Mean Corpuscular Volume 99.2 fL (78.0-98.0); Mean Platelet Volume 7.4 fL (7.4-10.4); Platelet Count 194 thou/uL (130-400); Red Blood Cell (RBC) Count 4.05 mill/uL (4.70-6.10)
[2018-10-08 10:24] LABS: ALT (SGPT) 14 U/L (8-55); AST (SGOT) 17 U/L (5-34); Albumin 3.8 g/dL (3.4-4.8); Alkaline Phosphatase 73 U/L (40-150); Anion Gap 14 mmol/L (10-20); BUN (Urea Nitrogen) 18 mg/dL (8.4-25.7); Bilirubin, Total 0.6 mg/dL (0.2-1.2); Calc. Creatinine Clearance 0 mL/min (70-130); Calcium 9.2 mg/dL (7.8-10.44); Carbon Dioxide 31 mmol/L (23-31); Chloride 99 mmol/L (98-107); Estimated GFR-MDRD 72; Globulin 2.1 g/dL (2.4-3.5); Glucose 130 mg/dL (83-110); Potassium 3.9 mmol/L (3.5-5.1); Protein, Total 5.9 g/dL (5.8-8.1); Sodium 140 mmol/L (136-145)
[2018-10-08 10:43] LABS: Base Excess-Venous 5.4 mmol/L (-2.0 to 3.0); CO2 Tension (PvCO2) 54.3 mmHg (40.0-50.0); O2 Tension (PvO2) 28.7 mmHg (35.0-45.0); pH (Venous) 7.379 (7.320-7.430)
[2018-10-08 10:44] LABS: Calcium, Ionized 1.09 mmol/L (See Comments:); Chloride 99 mmol/L (98-107); Hemoglobin - Calc 13.9 g/dL (14.0-18.0); Potassium 3.5 mmol/L (3.5-5.1); Sodium 136 mmol/L (138-145); T. Carbon Dioxide 33.8 mmol/L (22.0-28.0); vO2 Saturation-calc 51.6 % (60.0-85.0)
[2018-10-08 10:45] LABS: Bicarbonate (HCO3v) 32.1 mmol/L (22.0-28.0)
[2018-10-08] MEDS ORDERED: predniSONE 20 MG TAB ONE (10:49)
== END 2018-10-08 11:10 | disposition home or self-care (01) ==
LOC: BURERS 09:34
DX: J44.1 Chronic obstructive pulmonary disease with (acute) exacerbation (principal); J06.9 Acute upper respiratory infection, unspecified; M86.9 Osteomyelitis, unspecified; M10.9 Gout, unspecified; F17.220 Nicotine dependence, chewing tobacco, uncomplicated; Z79.899 Other long term (current) drug therapy; Z79.51 Long term (current) use of inhaled steroids
CPT/HCPCS: 71045; 80053; 82330; 82435; 82803; 83880; 84132; 84295; 84484; 85014; 85025; 85379; 87804; 93005; J7620

== ENCOUNTER 2019-06-16 11:36 | Observation (INO) | payer MEDICARE, BC ==
[2019-06-16 12:14] LABS: #Basophils 0.1 thou/uL (0.0-0.2); #Eosinphils 0.2 thou/uL (0.0-0.7); #Lymphocytes 1.5 thou/uL (1.20-3.40); #Monocytes 1.1 thou/uL (0.11-0.59); #Neutrophils 6.2 thou/uL (1.40-6.50); %Eosinophils 2.3 % (0.0-10.0); %Lymphocytes 16.8 % (21.0-51.0); %Monocytes 11.9 % (0.0-10.0); Hemoglobin 13.8 g/dL (14.0-18.0); Mean Corpuscular Hemoglobin 31.9 pg (27.0-31.0); Mean Corpuscular Volume 99.6 fL (78.0-98.0); Mean Platelet Volume 8.1 fL (7.4-10.4); Platelet Count 216 thou/uL (130-400); RBC Distribution Width 13.4 % (11.5-14.5); Red Blood Cell (RBC) Count 4.33 mill/uL (4.70-6.10); White Blood Cell (WBC) Count 9.2 thou/uL (4.8-10.8)
[2019-06-16 12:32] LABS: ALT (SGPT) 17 U/L (8-55); AST (SGOT) 18 U/L (5-34); Albumin 3.6 g/dL (3.4-4.8); Alkaline Phosphatase 76 U/L (40-110); Anion Gap 15 mmol/L (10-20); BUN (Urea Nitrogen) 18 mg/dL (8.4-25.7); Bilirubin, Total 0.7 mg/dL (0.2-1.2); Calc. Creatinine Clearance 0 mL/min (70-130); Calcium 9.3 mg/dL (7.8-10.44); Carbon Dioxide 28 mmol/L (23-31); Chloride 98 mmol/L (98-107); Estimated GFR-MDRD 62; Globulin 2.7 g/dL (2.4-3.5); Glucose 152 mg/dL (83-110); Potassium 3.7 mmol/L (3.5-5.1); Protein, Total 6.3 g/dL (5.8-8.1); Sodium 137 mmol/L (136-145)
[2019-06-16] MEDS ORDERED: Azithromycin 500 MG VIAL ONE (13:39)
[2019-06-16] MEDS ORDERED: methylPREDNISolone Sod Succ/PF 125 MG/2 ML VIAL ONE (13:39)
--- NOTE | 2019-06-16 14:22 | RAD ---
PORTABLE CHEST: DATE: 06/16/2019. FINDINGS: An AP portable film at 1203 shows a normal-sized heart and clear lungs. There has been no change sin ce the 10/08/18 study. There are no effusions and no edema was seen. IMPRESSION: No acute findings POS: HOME
[2019-06-16 15:23] VITALS: BMI 32.8
[2019-06-16] MEDS ORDERED: Ondansetron ODT 4 MG TAB PO PRN (16:36)
[2019-06-16] MEDS: Mometasone/Formoterol 60 PUFF AER INH SCH (19:02)
[2019-06-16] MEDS: methylPREDNISolone Sod Succ/PF 125 MG/2 ML VIAL IVP SCH (19:04)
[2019-06-16] MEDS ORDERED: Senokot S 8.6-50 MG TAB PO SCH (21:00)
[2019-06-16] MEDS ORDERED: Fish Oil 1,000 MG CAP PO SCH (21:00)
[2019-06-16] MEDS: Acetaminophen ER (8hr) 650 MG TAB PO SCH (21:03)
[2019-06-17] MEDS: methylPREDNISolone Sod Succ/PF 125 MG/2 ML VIAL IVP SCH ×3 (00:49→13:33)
[2019-06-17] MEDS: Mometasone/Formoterol 60 PUFF AER INH SCH (06:32)
[2019-06-17 06:43] VITALS: BP 120/63; TEMP 98.5
[2019-06-17] MEDS ORDERED: Famotidine 20 MG TAB PO SCH (09:00)
[2019-06-17] MEDS ORDERED: Multivitamin W/ Minerals 1 TAB PO SCH (09:00)
[2019-06-17] MEDS ORDERED: predniSONE 10 MG TAB PO SCH (09:00)
[2019-06-17] MEDS ORDERED: Loratadine 10 MG TAB PO SCH (09:00)
[2019-06-17] MEDS ORDERED: Allopurinol 100 MG TAB PO SCH (09:00)
[2019-06-17] MEDS ORDERED: Enoxaparin Sodium 40 MG/0.4 ML SYRINGE SC SCH (09:00)
[2019-06-17] MEDS ORDERED: Abiraterone Acetate [Zytiga] 1,000 MG PO SCH ×2 (09:00→14:30)
[2019-06-17] MEDS ORDERED: Venlafaxine XR 37.5 MG CAP PO SCH (09:00)
[2019-06-17] MEDS ORDERED: Furosemide 20 MG TAB PO SCH (09:00)
[2019-06-17] MEDS ORDERED: Calcium Carbonate + Vit D 1 TAB PO SCH (09:00)
[2019-06-17] MEDS: Acetaminophen ER (8hr) 650 MG TAB PO SCH (09:10)
--- NOTE | 2019-06-18 05:52 | DIS ---
DATE OF ADMISSION: 06/16/2019 DATE OF DISCHARGE: 06/17/2019 ADMISSION DIAGNOSES: 1. Chronic obstructive pulmonary disease exacerbation. 2. Physical deconditioning. SECONDARY DIAGNOSES: 1. History of supraventricular tachycardia. 2. History of prostate cancer. 3. Depression. 4. History of gout. PROCEDURES: On 06/16/2019, chest x-ray showed no acute findings. HOSPITAL COURSE: An 83-year-old male presented to the [facility] Emergency Department with a 2-3 day history of worsening respiratory status to the point where he was unable to ambulate across the room without developing tachypnea and dyspnea. This was a noticeable change from his baseline respiratory status. Over this time, he also developed weakness prior to arrival at the emergency department, and had a fall yesterday resulting in skin tears of his right upper extremity. In the emergency department, the patient had reassuring chest x-ray and lab findings overall. He received DuoNeb treatments and supplemental oxygen. However, was unable to return to his baseline respiratory status. Thus, he was admitted for observation for further care of COPD exacerbation. Overnight, he received scheduled nebulized treatments along with IV Solu-Medrol and supplemental oxygen. His oxygen was gradually weaned back to room air and he has been able to sustain O2 sats greater than 92%. He has been able to ambulate with the assistance of his walker and staff members and maintain his oxygen saturation. He does have a noticeable increase in his heart rate with extended ambulation; however he reports to be breathing much easier with activity and is amenable to discharge back to his home setting with further oral steroid treatment. DISPOSITION: The patient was discharged home where he lives with family members. FOLLOWUP: He may follow up with his primary care provider, Dr. Tinsley next week. DISCHARGE MEDICATIONS: One new medication is a Medrol Dosepak. He will resume his usual home medications includin. Furosemide 20 mg daily. 2. Tylenol extended release 1250 mg b.i.d. Prednisone 10 mg daily. 3. Zytiga 1000 mg daily. 4. Jolie-colace 1 tablet at bedtime. 5. Venlafaxine 150 mg daily. 6. Fish oil 1000 mg capsule at bedtime. 7. Centrum Silver multivitamin daily. 8. Metoprolol succinate 12.5 mg daily. 9. DuoNeb 3 mL q.6 hours p.r.n. 10. Zyrtec 10 mg daily. 11. Advair 100/50 one inhalation daily. 12. Cimetidine 200 mg daily. 13. Calcium carbonate plus vitamin D daily. Allopurinol 300 mg daily. 14. Zofran 4 mg q.6 hours p.r.n. Job ID: [id number] [facility]
--- NOTE | 2019-06-19 07:10 | HP ---
CHIEF COMPLAINT: Dyspnea. PRIMARY CARE PHYSICIAN: Dr. Tinsley. HISTORY OF PRESENT ILLNESS: This is an 83-year-old male with history of COPD, who presented to the [facility] Emergency Department earlier today with complaints of worsening dyspnea over a 2-day time period. He is not oxygen dependent and reports compliance with his COPD medications, which include Advair and daily 10 mg prednisone. In the emergency department, the patient received multiple DuoNeb treatments; however, he has not been able to return back to his baseline respiratory status. He reports being abnormally short of breath with simple activities such as walking across the room at home. He had an episode of near-syncope yesterday causing him to fall and sustained skin abrasions to his right upper extremity. The daughter who is present, reports that he is notably weaker over the last 2 days as compared to his baseline. He typically ambulates with the assistance of a walker. Secondary to the patient's compromised respiratory status, he has been admitted under observation status for treatment regarding COPD exacerbation. PAST MEDICAL HISTORY: Includes prostate cancer, followed by Dr. Andrade and Dr. Cho. COPD, depression, atrial tachycardia, and SVT. PAST SURGICAL HISTORY: Prostatectomy, cervical spine surgery x2, lumbar spine surgery x1, cardiac ablation, and left knee surgery. SOCIAL HISTORY: Lives at home with family. Denies smoking. He does dip tobacco. Social ETOH use. No drug use. FAMILY HISTORY: Positive for coronary artery disease. ALLERGIES: ASPIRIN, DEXTROMETHORPHAN, GUAIFENESIN, IBUPROFEN, AND NAPROXEN. CURRENT MEDICATIONS: 1. Lasix 20 mg daily. 2. p.o. b.i.d. 3. Prednisone 10 mg daily. 4. Zytiga 1000 mg daily. 5. Jolie-Colace one tablet at bedtime. 6. Venlafaxine 150 mg daily. 7. Fish oil one capsule at bedtime. 8. Centrum Silver multivitamin one tablet daily. 9. Metoprolol succinate 12.5 mg daily. 10. DuoNeb 3 mL q.6 hours p.r.n. 11. Cetirizine 10 mg daily. 12. Advair Diskus 100/50 one inhalation daily. 13. Cimetidine 200 mg daily. 14. Calcium carbonate plus vitamin D 600 daily. 15. Allopurinol 300 mg daily. 16. Zofran 4 mg q.6 hours p.r.n. REVIEW OF SYSTEMS: GENERAL: Complains of fatigue. Denies fever. EARS, NOSE, AND THROAT: Denies sore throat, nasal drainage, or congestion. CARDIOVASCULAR: Denies chest pain. He does report palpitations. RESPIRATORY: He complains of shortness of breath. No frequent cough. GASTRO: Denies abdominal pain, nausea, vomiting, diarrhea, or constipation. GENITOURINARY: Denies dysuria. MUSCULOSKELETAL: Denies joint swelling. DERM: Denies rash. NEURO: Denies headache. LABORATORY DATA: White blood cell count 9.2, hemoglobin 13.8, hematocrit 43.1, platelets 216. Sodium 137, potassium 3.7, BUN of 18, creatinine 1.12, GFR 62, glucose 152, AST 18, ALT 17. Troponin less than 0.010. BNP is 37.3. IMAGING STUDIES: Chest x-ray shows no acute findings. PHYSICAL EXAMINATION: VITAL SIGNS: On the floor are pending. Most recent vitals as per the emergency department are blood pressure 118/83, pulse 107, respiratory rate 18, oxygen 100 % on 2 L, temperature is 99.1. GENERAL: The patient is alert and oriented, in no acute distress. He is overweight. HEAD, EYES, EARS, NOSE AND THROAT: Normocephalic and atraumatic. Extraocular muscles are intact bilaterally. Moist mucous membranes. Clear oropharynx. NECK: Supple with no lymphadenopathy. No meningeal signs. No JVD. CARDIOVASCULAR: Slightly irregular rhythm with occasional ectopic beat with borderline tachycardia. No murmurs. RESPIRATORY: Clear to auscultation bilaterally without wheezes, rales, or rhonchi. Nasal cannula in place. ABDOMEN: Soft, nontender to palpation. EXTREMITIES: Multiple skin tears involving the right upper extremity. No clubbing, cyanosis, or edema. SKIN: No rash. NEUROLOGIC: Nonfocal with cranial nerves 2 through 12 grossly intact. Does have generalized weakness. ASSESSMENT AND PLAN: 1. Chronic obstructive pulmonary disease exacerbation. We will resume the patient's controller medication, Advair, will be substituted on formulary by Dulera. We will provide the patient scheduled nebulized treatments of DuoNeb. We will provide Solu-Medrol 60 mg IV q.6 hours. The patient is currently on supplemental oxygen , we will work to wean this and to keep the oxygen saturation greater than 92%. 2. Physical deconditioning. Orders in place for evaluation by Physical Therapy and Occupational Therapy. 3. Supraventricular tachycardia. The patient's heart rate normalized s/p transition from the emergency department to the floor. We will resume his usual metoprolol dosing and monitor his heart rate further. 4. History of prostate cancer. The patient is followed by Dr. Andrade and Dr. Cho. He will resume his usual medications, Zytiga for this issue. 5. Depression. We will resume the patient's venlafaxine. 6. History of gout. We will resume allopurinol prophylaxis. 7. The patient is on famotidine for GI prophylaxis. We will add Lovenox for deep vein thrombosis prophylaxis. 8. Code status is DNR. 9. Disposition. We will re-evaluate the patient tomorrow morning and assess whether he is able to go home with further input via Physical Therapy and Occupational Therapy. Job ID: [id number] [facility]
== END 2019-06-17 17:20 | disposition home or self-care (01) ==
LOC: BURERS 11:36 → BURMED 14:28
PROVIDERS: ADMIT Family Medicine; ATTEND Family Medicine
DX: J44.1 Chronic obstructive pulmonary disease with (acute) exacerbation (principal); F32.9 Major depressive disorder, single episode, unspecified; I47.1 Supraventricular tachycardia; F17.220 Nicotine dependence, chewing tobacco, uncomplicated; M10.9 Gout, unspecified; R53.81 Other malaise; Z66 Do not resuscitate; Z79.52 Long term (current) use of systemic steroids; Z79.899 Other long term (current) drug therapy; Z88.6 Allergy status to analgesic agent; Z88.8 Allergy status to other drugs, medicaments and biological substances
CPT/HCPCS: 36415; 71045; 80053; 83880; 84484; 85025; 93005; 94640; 96372; 96374; 96376; G0378; J0456; J1650; J2930; J7512; J7620

== ENCOUNTER 2019-08-03 15:10 | Inpatient (IN) | payer MEDICARE, BC ==
[2019-08-03] MEDS: Acetaminophen ER (8hr) 650 MG TAB PO SCH (20:54)
[2019-08-03] MEDS: Oxybutynin 5 MG TAB PO SCH (20:54)
[2019-08-03] MEDS: Metoprolol Tartrate 25 MG TAB PO SCH (20:57)
[2019-08-03] MEDS: Ciprofloxacin 500 MG TAB PO SCH (20:58)
[2019-08-04] MEDS: Ciprofloxacin 500 MG TAB PO SCH ×2 (05:52→20:58)
[2019-08-04] MEDS ORDERED: (Abiraterone Acetate [Zytiga] 1,000 MG) PO SCH (09:00)
[2019-08-04] MEDS: Famotidine 20 MG TAB PO SCH (09:58)
[2019-08-04] MEDS: Acetaminophen ER (8hr) 650 MG TAB PO SCH ×2 (09:58→20:58)
[2019-08-04] MEDS: Enoxaparin Sodium 30 MG/0.3 ML SYRINGE SC SCH (09:58)
[2019-08-04] MEDS: Allopurinol 100 MG TAB PO SCH (09:59)
[2019-08-04] MEDS: Calcium Carbonate 600 MG + Vit D TAB PO SCH (09:59)
[2019-08-04] MEDS: Loratadine 10 MG TAB PO SCH (09:59)
[2019-08-04] MEDS: Floranex Packet PO SCH (09:59)
[2019-08-04] MEDS: Metoprolol Tartrate 25 MG TAB PO SCH ×2 (10:00→21:01)
[2019-08-04] MEDS: Oxybutynin 5 MG TAB PO SCH ×2 (10:00→20:58)
[2019-08-04] MEDS ORDERED: Ondansetron ODT 4 MG TAB PO PRN (15:32)
[2019-08-04] MEDS: Senokot S 8.6-50 MG TAB PO SCH (20:58)
[2019-08-04] MEDS: Fish Oil 1,000 MG CAP PO SCH (21:01)
[2019-08-04] MEDS: Lidocaine Patch Removal 1 EACH TOP SCH (21:21)
[2019-08-05] MEDS: Acetaminophen 325 MG TAB PO PRN (02:35)
[2019-08-05] MEDS ORDERED: Ondansetron ODT 4 MG TAB PO SCH (04:15)
[2019-08-05 05:14] LABS: #Basophils 0.1 thou/uL (0.0-0.2); #Eosinphils 0.3 thou/uL (0.0-0.7); #Lymphocytes 1.5 thou/uL (1.20-3.40); #Monocytes 0.9 thou/uL (0.11-0.59); #Neutrophils 8.4 thou/uL (1.40-6.50); %Eosinophils 2.8 % (0.0-10.0); %Lymphocytes 13.2 % (21.0-51.0); %Monocytes 8.3 % (0.0-10.0); %Neutrophils 74.7 % (42.0-75.0); Hemoglobin 12.9 g/dL (14.0-18.0); Mean Corpuscular HGB CONC 31.4 g/dL (32.0-36.0); Mean Corpuscular Hemoglobin 30.5 pg (27.0-31.0); Mean Corpuscular Volume 96.9 fL (78.0-98.0); Mean Platelet Volume 7.2 fL (7.4-10.4); Platelet Count 325 thou/uL (130-400); RBC Distribution Width 13.6 % (11.5-14.5); Red Blood Cell (RBC) Count 4.23 mill/uL (4.70-6.10); White Blood Cell (WBC) Count 11.3 thou/uL (4.8-10.8)
[2019-08-05 05:21] LABS: ALT (SGPT) 28 U/L (8-55); AST (SGOT) 31 U/L (5-34); Albumin 2.7 g/dL (3.4-4.8); Alkaline Phosphatase 62 U/L (40-110); Anion Gap 15 mmol/L (10-20); BUN (Urea Nitrogen) 17 mg/dL (8.4-25.7); Bilirubin, Total 0.5 mg/dL (0.2-1.2); Calc. Creatinine Clearance 0 mL/min (70-130); Carbon Dioxide 33 mmol/L (23-31); Chloride 96 mmol/L (98-107); Estimated GFR-MDRD 78; Globulin 2.6 g/dL (2.4-3.5); Glucose 104 mg/dL (83-110); Potassium 3.8 mmol/L (3.5-5.1); Protein, Total 5.3 g/dL (5.8-8.1); Sodium 140 mmol/L (136-145)
[2019-08-05] MEDS: Floranex Packet PO SCH (09:17)
[2019-08-05] MEDS: Enoxaparin Sodium 30 MG/0.3 ML SYRINGE SC SCH (09:17)
[2019-08-05] MEDS: Famotidine 20 MG TAB PO SCH (09:17)
[2019-08-05] MEDS: Venlafaxine XR 37.5 MG CAP PO SCH (09:18)
[2019-08-05] MEDS: Allopurinol 100 MG TAB PO SCH (09:19)
[2019-08-05] MEDS: Loratadine 10 MG TAB PO SCH (09:20)
[2019-08-05] MEDS: predniSONE 10 MG TAB PO SCH (09:20)
[2019-08-05] MEDS: Calcium Carbonate 600 MG + Vit D TAB PO SCH (09:20)
[2019-08-05] MEDS: Acetaminophen ER (8hr) 650 MG TAB PO SCH ×2 (09:20→20:37)
[2019-08-05] MEDS: Ciprofloxacin 500 MG TAB PO SCH ×2 (09:21→20:37)
[2019-08-05] MEDS: Furosemide 20 MG TAB PO SCH (09:21)
[2019-08-05] MEDS: Oxybutynin 5 MG TAB PO SCH ×2 (09:21→20:37)
[2019-08-05] MEDS: Metoprolol Tartrate 25 MG TAB PO SCH ×2 (09:21→20:37)
[2019-08-05] MEDS: (Abiraterone Acetate [Zytiga] 1,000 MG) PO SCH (14:18)
[2019-08-05] MEDS: Senokot S 8.6-50 MG TAB PO SCH (20:37)
[2019-08-05] MEDS: Fish Oil 1,000 MG CAP PO SCH (20:37)
[2019-08-05] MEDS: Lidocaine Patch Removal 1 EACH TOP SCH (20:39)
--- NOTE | 2019-08-05 20:49 | CT ---
CT OF THE PELVIS WITHOUT CONTRAST: 08/05/[address] was done for evaluation of right hip pain following a fall. No fracture or dislocation was seen. Minor irregularities of the femoral neck seen on plain radiograp h did not sykes out to be fracture. The pubic rings appear intact, as does the remainder of the pelvis. There is no widening of the pubic symphysis. The SI joints are symmetrical except for some increased arthritic changes in the right SI joint. There is severe degenerative facet arthritis in the lower l umbar spine. No acute soft tissue abnormalities were seen in the pelvis. No free fluid, bleeding or i nflammatory change was seen. IMPRESSION: 1. No evidence of hip fracture. 2. No acute pelvic finding. 3. Severe degenerative change of the lower lumbar spine. POS: HOME
--- NOTE | 2019-08-05 20:51 | RAD ---
RIGHT HIP TWO VIEWS: 08/05/19 No major fracture was seen. On the rotated view there was a little irregularity of the cortex of the upper outer portion of the femoral neck. Because of this, a CT was suggested to be absolutely sure t here is no fracture here. The joint space is normal in width and the adjacent pubic ring appears int act. IMPRESSION: Probably negative study, but see CT to follow. POS: HOME
[2019-08-06] MEDS: Acetaminophen 325 MG TAB PO PRN (03:58)
[2019-08-06] MEDS: Famotidine 20 MG TAB PO SCH (09:38)
[2019-08-06] MEDS: Oxybutynin 5 MG TAB PO SCH ×2 (09:38→21:02)
[2019-08-06] MEDS: Acetaminophen ER (8hr) 650 MG TAB PO SCH ×2 (09:39→21:02)
[2019-08-06] MEDS: Venlafaxine XR 37.5 MG CAP PO SCH (09:40)
[2019-08-06] MEDS: Calcium Carbonate 600 MG + Vit D TAB PO SCH (09:41)
[2019-08-06] MEDS: Allopurinol 100 MG TAB PO SCH (09:41)
[2019-08-06] MEDS: Floranex Packet PO SCH (09:42)
[2019-08-06] MEDS: Furosemide 20 MG TAB PO SCH (09:42)
[2019-08-06] MEDS: Metoprolol Tartrate 25 MG TAB PO SCH ×2 (09:42→21:02)
[2019-08-06] MEDS: Ciprofloxacin 500 MG TAB PO SCH ×2 (09:42→21:02)
[2019-08-06] MEDS: Loratadine 10 MG TAB PO SCH (09:42)
[2019-08-06] MEDS: predniSONE 10 MG TAB PO SCH (09:42)
[2019-08-06] MEDS: Enoxaparin Sodium 30 MG/0.3 ML SYRINGE SC SCH (09:43)
[2019-08-06] MEDS: (Abiraterone Acetate [Zytiga] 1,000 MG) PO SCH (14:27)
[2019-08-06] MEDS: Nicotine 7 MG PATCH TOP SCH (16:27)
[2019-08-06] MEDS: Senokot S 8.6-50 MG TAB PO SCH (21:02)
[2019-08-06] MEDS: Fish Oil 1,000 MG CAP PO SCH (21:02)
[2019-08-06] MEDS: Lidocaine Patch Removal 1 EACH TOP SCH (21:09)
[2019-08-06] MEDS: Lidocaine 5% Patch TD PRN (23:38)
[2019-08-07] MEDS: Venlafaxine XR 37.5 MG CAP PO SCH (08:58)
[2019-08-07] MEDS: Allopurinol 100 MG TAB PO SCH (08:59)
[2019-08-07] MEDS: Furosemide 20 MG TAB PO SCH (08:59)
[2019-08-07] MEDS: Acetaminophen ER (8hr) 650 MG TAB PO SCH ×2 (08:59→21:16)
[2019-08-07] MEDS: Metoprolol Tartrate 25 MG TAB PO SCH ×2 (08:59→21:16)
[2019-08-07] MEDS: predniSONE 10 MG TAB PO SCH (08:59)
[2019-08-07] MEDS: Ciprofloxacin 500 MG TAB PO SCH ×2 (08:59→21:18)
[2019-08-07] MEDS: Floranex Packet PO SCH (09:00)
[2019-08-07] MEDS: Loratadine 10 MG TAB PO SCH (09:00)
[2019-08-07] MEDS: Enoxaparin Sodium 30 MG/0.3 ML SYRINGE SC SCH (09:00)
[2019-08-07] MEDS: Famotidine 20 MG TAB PO SCH (09:00)
[2019-08-07] MEDS: Calcium Carbonate 600 MG + Vit D TAB PO SCH (09:00)
[2019-08-07] MEDS: Oxybutynin 5 MG TAB PO SCH ×2 (09:00→21:14)
[2019-08-07] MEDS ORDERED: Triple Antibiotic Oint 1 GM Packet TOP SCH (12:00)
[2019-08-07] MEDS: (Abiraterone Acetate [Zytiga] 1,000 MG) PO SCH (14:32)
[2019-08-07] MEDS: Nicotine 7 MG PATCH TOP SCH (15:22)
[2019-08-07] MEDS: Senokot S 8.6-50 MG TAB PO SCH (21:14)
[2019-08-07] MEDS: Fish Oil 1,000 MG CAP PO SCH (21:16)
[2019-08-07] MEDS: Triple Antibiotic Oint 1 GM Packet TOP SCH (21:17)
[2019-08-07] MEDS: Lidocaine Patch Removal 1 EACH TOP SCH (21:18)
[2019-08-08] MEDS: Acetaminophen ER (8hr) 650 MG TAB PO SCH ×2 (09:23→20:25)
[2019-08-08] MEDS: Famotidine 20 MG TAB PO SCH (09:23)
[2019-08-08] MEDS: Enoxaparin Sodium 30 MG/0.3 ML SYRINGE SC SCH (09:24)
[2019-08-08] MEDS: Furosemide 20 MG TAB PO SCH (09:25)
[2019-08-08] MEDS: Calcium Carbonate 600 MG + Vit D TAB PO SCH (09:25)
[2019-08-08] MEDS: predniSONE 10 MG TAB PO SCH (09:25)
[2019-08-08] MEDS: Venlafaxine XR 37.5 MG CAP PO SCH (09:25)
[2019-08-08] MEDS: Metoprolol Tartrate 25 MG TAB PO SCH ×2 (09:26→20:24)
[2019-08-08] MEDS: Ciprofloxacin 500 MG TAB PO SCH ×2 (09:26→20:26)
[2019-08-08] MEDS: Allopurinol 100 MG TAB PO SCH (09:26)
[2019-08-08] MEDS: Loratadine 10 MG TAB PO SCH (09:26)
[2019-08-08] MEDS: Triple Antibiotic Oint 1 GM Packet TOP SCH ×2 (09:27→20:23)
[2019-08-08] MEDS: Floranex Packet PO SCH (09:27)
[2019-08-08] MEDS: Oxybutynin 5 MG TAB PO SCH ×2 (09:28→20:24)
[2019-08-08] MEDS: Lidocaine 5% Patch TD PRN (09:41)
[2019-08-08] MEDS: (Abiraterone Acetate [Zytiga] 1,000 MG) PO SCH (14:23)
[2019-08-08] MEDS: Nicotine 7 MG PATCH TOP SCH (15:57)
[2019-08-08] MEDS: Senokot S 8.6-50 MG TAB PO SCH (20:26)
[2019-08-08] MEDS: Fish Oil 1,000 MG CAP PO SCH (20:26)
[2019-08-08] MEDS: Lidocaine Patch Removal 1 EACH TOP SCH (22:31)
[2019-08-09] MEDS ORDERED: Lidocaine 5% Patch TD PRN (09:00)
[2019-08-09] MEDS: Enoxaparin Sodium 30 MG/0.3 ML SYRINGE SC SCH (09:28)
[2019-08-09] MEDS: Calcium Carbonate 600 MG + Vit D TAB PO SCH (09:29)
[2019-08-09] MEDS: Loratadine 10 MG TAB PO SCH (09:29)
[2019-08-09] MEDS: Oxybutynin 5 MG TAB PO SCH ×2 (09:29→20:51)
[2019-08-09] MEDS: Acetaminophen ER (8hr) 650 MG TAB PO SCH ×2 (09:29→20:50)
[2019-08-09] MEDS: Allopurinol 100 MG TAB PO SCH (09:30)
[2019-08-09] MEDS: Floranex Packet PO SCH (09:30)
[2019-08-09] MEDS: Ciprofloxacin 500 MG TAB PO SCH ×2 (09:30→20:51)
[2019-08-09] MEDS: predniSONE 10 MG TAB PO SCH (09:31)
[2019-08-09] MEDS: Famotidine 20 MG TAB PO SCH (09:31)
[2019-08-09] MEDS: Venlafaxine HCl XR 75 MG CAP PO SCH (09:31)
[2019-08-09] MEDS: Furosemide 20 MG TAB PO SCH (09:31)
[2019-08-09] MEDS: Triple Antibiotic Oint 1 GM Packet TOP SCH ×2 (09:32→20:51)
[2019-08-09] MEDS: Metoprolol Tartrate 25 MG TAB PO SCH ×2 (09:32→20:52)
[2019-08-09] MEDS: Abiraterone Acetate [Zytiga] 250 MG PO SCH (14:40)
[2019-08-09] MEDS: Nicotine 7 MG PATCH TOP SCH (15:45)
[2019-08-09] MEDS: Fish Oil 1,000 MG CAP PO SCH (20:51)
[2019-08-09] MEDS: Senokot S 8.6-50 MG TAB PO SCH (20:52)
[2019-08-09] MEDS: Lidocaine Patch Removal 1 EACH TOP SCH (20:54)
[2019-08-10] MEDS ORDERED: cloNIDine 0.1mg/24 Hour PATCH TD SCH (09:00)
[2019-08-10] MEDS: Acetaminophen ER (8hr) 650 MG TAB PO SCH ×2 (09:44→21:40)
[2019-08-10] MEDS: Enoxaparin Sodium 30 MG/0.3 ML SYRINGE SC SCH (09:44)
[2019-08-10] MEDS: Calcium Carbonate 600 MG + Vit D TAB PO SCH (09:45)
[2019-08-10] MEDS: Ciprofloxacin 500 MG TAB PO SCH ×2 (09:45→21:40)
[2019-08-10] MEDS: Floranex Packet PO SCH (09:45)
[2019-08-10] MEDS: Loratadine 10 MG TAB PO SCH (09:46)
[2019-08-10] MEDS: Metoprolol Tartrate 25 MG TAB PO SCH ×2 (09:46→21:39)
[2019-08-10] MEDS: Venlafaxine HCl XR 75 MG CAP PO SCH (09:47)
[2019-08-10] MEDS: Allopurinol 100 MG TAB PO SCH (09:47)
[2019-08-10] MEDS: Famotidine 20 MG TAB PO SCH (09:48)
[2019-08-10] MEDS: predniSONE 10 MG TAB PO SCH (09:48)
[2019-08-10] MEDS: Triple Antibiotic Oint 1 GM Packet TOP SCH ×2 (09:48→21:46)
[2019-08-10] MEDS: Furosemide 20 MG TAB PO SCH (09:48)
[2019-08-10] MEDS: Oxybutynin 5 MG TAB PO SCH ×2 (09:49→21:39)
[2019-08-10] MEDS: Abiraterone Acetate [Zytiga] 250 MG PO SCH (14:13)
[2019-08-10] MEDS: Nicotine 7 MG PATCH TOP SCH (15:37)
[2019-08-10] MEDS: Fish Oil 1,000 MG CAP PO SCH (21:39)
[2019-08-10] MEDS: Senokot S 8.6-50 MG TAB PO SCH (21:39)
[2019-08-10] MEDS: Lidocaine Patch Removal 1 EACH TOP SCH (21:42)
[2019-08-11] MEDS: predniSONE 10 MG TAB PO SCH (09:37)
[2019-08-11] MEDS: Floranex Packet PO SCH (09:39)
[2019-08-11] MEDS: Calcium Carbonate 600 MG + Vit D TAB PO SCH (09:40)
[2019-08-11] MEDS: Allopurinol 100 MG TAB PO SCH (09:41)
[2019-08-11] MEDS: Furosemide 20 MG TAB PO SCH (09:41)
[2019-08-11] MEDS: Loratadine 10 MG TAB PO SCH (09:41)
[2019-08-11] MEDS: Ciprofloxacin 500 MG TAB PO SCH ×2 (09:41→20:34)
[2019-08-11] MEDS: Acetaminophen ER (8hr) 650 MG TAB PO SCH ×2 (09:41→20:34)
[2019-08-11] MEDS: Enoxaparin Sodium 30 MG/0.3 ML SYRINGE SC SCH (09:42)
[2019-08-11] MEDS: Famotidine 20 MG TAB PO SCH (09:42)
[2019-08-11] MEDS: Metoprolol Tartrate 25 MG TAB PO SCH ×2 (09:43→20:34)
[2019-08-11] MEDS: Triple Antibiotic Oint 1 GM Packet TOP SCH ×2 (09:45→20:34)
[2019-08-11] MEDS: Venlafaxine HCl XR 75 MG CAP PO SCH (09:45)
[2019-08-11] MEDS: Oxybutynin 5 MG TAB PO SCH ×2 (09:46→20:36)
[2019-08-11] MEDS: Abiraterone Acetate [Zytiga] 250 MG PO SCH (14:47)
[2019-08-11] MEDS: Nicotine 7 MG PATCH TOP SCH (14:53)
[2019-08-11] MEDS: Senokot S 8.6-50 MG TAB PO SCH (20:34)
[2019-08-11] MEDS: Fish Oil 1,000 MG CAP PO SCH (20:34)
[2019-08-11] MEDS: Lidocaine Patch Removal 1 EACH TOP SCH (20:35)
[2019-08-12] MEDS: Famotidine 20 MG TAB PO SCH (09:29)
[2019-08-12] MEDS: Floranex Packet PO SCH (09:29)
[2019-08-12] MEDS: Acetaminophen ER (8hr) 650 MG TAB PO SCH ×2 (09:30→20:13)
[2019-08-12] MEDS: Venlafaxine HCl XR 75 MG CAP PO SCH (09:30)
[2019-08-12] MEDS: Furosemide 20 MG TAB PO SCH (09:31)
[2019-08-12] MEDS: Allopurinol 100 MG TAB PO SCH (09:31)
[2019-08-12] MEDS: Loratadine 10 MG TAB PO SCH (09:32)
[2019-08-12] MEDS: Ciprofloxacin 500 MG TAB PO SCH ×2 (09:32→20:16)
[2019-08-12] MEDS: Calcium Carbonate 600 MG + Vit D TAB PO SCH (09:32)
[2019-08-12] MEDS: predniSONE 10 MG TAB PO SCH (09:32)
[2019-08-12] MEDS: Enoxaparin Sodium 30 MG/0.3 ML SYRINGE SC SCH (09:32)
[2019-08-12] MEDS: Metoprolol Tartrate 25 MG TAB PO SCH ×2 (09:32→20:14)
[2019-08-12] MEDS: Triple Antibiotic Oint 1 GM Packet TOP SCH ×2 (09:33→20:16)
[2019-08-12] MEDS: Oxybutynin 5 MG TAB PO SCH ×2 (09:36→20:22)
[2019-08-12] MEDS: Abiraterone Acetate [Zytiga] 250 MG PO SCH (14:51)
[2019-08-12] MEDS: Nicotine 7 MG PATCH TOP SCH (14:55)
[2019-08-12] MEDS: Senokot S 8.6-50 MG TAB PO SCH (20:14)
[2019-08-12] MEDS: Fish Oil 1,000 MG CAP PO SCH (20:14)
[2019-08-12] MEDS: Lidocaine Patch Removal 1 EACH TOP SCH (20:17)
[2019-08-13] MEDS: Acetaminophen ER (8hr) 650 MG TAB PO SCH ×2 (08:49→21:16)
[2019-08-13] MEDS: Enoxaparin Sodium 30 MG/0.3 ML SYRINGE SC SCH (08:49)
[2019-08-13] MEDS: Furosemide 20 MG TAB PO SCH (08:50)
[2019-08-13] MEDS: Calcium Carbonate 600 MG + Vit D TAB PO SCH (08:50)
[2019-08-13] MEDS: predniSONE 10 MG TAB PO SCH (08:50)
[2019-08-13] MEDS: Famotidine 20 MG TAB PO SCH (08:50)
[2019-08-13] MEDS: Allopurinol 100 MG TAB PO SCH (08:50)
[2019-08-13] MEDS: Metoprolol Tartrate 25 MG TAB PO SCH ×2 (08:51→21:16)
[2019-08-13] MEDS: Loratadine 10 MG TAB PO SCH (08:51)
[2019-08-13] MEDS: Ciprofloxacin 500 MG TAB PO SCH ×2 (08:51→21:16)
[2019-08-13] MEDS: Venlafaxine HCl XR 75 MG CAP PO SCH (08:51)
[2019-08-13] MEDS: Floranex Packet PO SCH (08:52)
[2019-08-13] MEDS: Triple Antibiotic Oint 1 GM Packet TOP SCH ×2 (08:52→21:37)
[2019-08-13] MEDS: Oxybutynin 5 MG TAB PO SCH ×2 (08:53→21:20)
[2019-08-13] MEDS: Abiraterone Acetate [Zytiga] 250 MG PO SCH (15:00)
[2019-08-13] MEDS: Nicotine 7 MG PATCH TOP SCH (16:01)
[2019-08-13] MEDS: Senokot S 8.6-50 MG TAB PO SCH (21:16)
[2019-08-13] MEDS: Fish Oil 1,000 MG CAP PO SCH (21:17)
[2019-08-13] MEDS: Lidocaine Patch Removal 1 EACH TOP SCH (21:32)
[2019-08-14 08:25] LABS: Hemoglobin 13.8 g/dL (14.0-18.0); Platelet Count 271 thou/uL (130-400)
[2019-08-14] MEDS: Floranex Packet PO SCH (08:44)
[2019-08-14] MEDS: Venlafaxine HCl XR 75 MG CAP PO SCH (08:50)
[2019-08-14] MEDS: Calcium Carbonate 600 MG + Vit D TAB PO SCH (08:51)
[2019-08-14] MEDS: Allopurinol 100 MG TAB PO SCH (08:51)
[2019-08-14] MEDS: predniSONE 10 MG TAB PO SCH (08:51)
[2019-08-14] MEDS: Metoprolol Tartrate 25 MG TAB PO SCH ×2 (08:51→20:28)
[2019-08-14] MEDS: Loratadine 10 MG TAB PO SCH (08:52)
[2019-08-14] MEDS: Acetaminophen ER (8hr) 650 MG TAB PO SCH ×2 (08:52→20:28)
[2019-08-14] MEDS: Furosemide 20 MG TAB PO SCH (08:52)
[2019-08-14] MEDS: Famotidine 20 MG TAB PO SCH (08:52)
[2019-08-14] MEDS: Ciprofloxacin 500 MG TAB PO SCH (08:52)
[2019-08-14] MEDS: Enoxaparin Sodium 30 MG/0.3 ML SYRINGE SC SCH (08:52)
[2019-08-14] MEDS: Oxybutynin 5 MG TAB PO SCH (08:53)
[2019-08-14] MEDS: Triple Antibiotic Oint 1 GM Packet TOP SCH (08:58)
[2019-08-14] MEDS: Artificial Tear Sol 15 ML BOT EA EYE PRN (12:39)
[2019-08-14] MEDS: Abiraterone Acetate [Zytiga] 250 MG PO SCH (15:16)
[2019-08-14] MEDS: Lidocaine Patch Removal 1 EACH TOP SCH (20:35)
[2019-08-15] MEDS: Metoprolol Tartrate 25 MG TAB PO SCH ×2 (07:26→20:28)
[2019-08-15] MEDS: Famotidine 20 MG TAB PO SCH (07:27)
[2019-08-15] MEDS: Venlafaxine HCl XR 75 MG CAP PO SCH (07:27)
[2019-08-15] MEDS: Allopurinol 100 MG TAB PO SCH (07:27)
[2019-08-15] MEDS: predniSONE 10 MG TAB PO SCH (07:27)
[2019-08-15] MEDS: Acetaminophen ER (8hr) 650 MG TAB PO SCH ×2 (07:28→20:26)
[2019-08-15] MEDS: Floranex Packet PO SCH (08:25)
[2019-08-15] MEDS: Abiraterone Acetate [Zytiga] 250 MG PO SCH ×2 (15:34→16:00)
[2019-08-15] MEDS ORDERED: Furosemide 20 MG TAB PO SCH (16:15)
[2019-08-15] MEDS: Nicotine 7 MG PATCH TOP SCH (18:37)
[2019-08-15] MEDS: Triple Antibiotic Oint 1 GM Packet TOP SCH (20:26)
[2019-08-15] MEDS: Ciprofloxacin 500 MG TAB PO SCH (20:27)
[2019-08-15] MEDS: Lidocaine Patch Removal 1 EACH TOP SCH (20:28)
[2019-08-16] MEDS ORDERED: Ciprofloxacin 500 MG TAB PO SCH (06:00)
[2019-08-16] MEDS: Ciprofloxacin 500 MG TAB PO SCH ×2 (06:19→20:50)
[2019-08-16] MEDS: Nicotine 7 MG PATCH TOP SCH ×2 (06:21→16:39)
[2019-08-16] MEDS: Oxybutynin 5 MG TAB PO SCH ×2 (08:41→20:48)
[2019-08-16] MEDS ORDERED: Calcium Carbonate 600 MG + Vit D TAB PO SCH (09:00)
[2019-08-16] MEDS ORDERED: Triple Antibiotic Oint 1 GM Packet TOP SCH (09:00)
[2019-08-16] MEDS: Famotidine 20 MG TAB PO SCH (09:14)
[2019-08-16] MEDS: Triple Antibiotic Oint 1 GM Packet TOP SCH ×2 (09:15→20:51)
[2019-08-16] MEDS: Furosemide 20 MG TAB PO SCH (09:15)
[2019-08-16] MEDS: Calcium Carbonate 600 MG + Vit D TAB PO SCH (09:15)
[2019-08-16] MEDS: Floranex Packet PO SCH (09:15)
[2019-08-16] MEDS: Multivitamin W/ Minerals 1 TAB PO SCH (09:15)
[2019-08-16] MEDS: Loratadine 10 MG TAB PO SCH (09:16)
[2019-08-16] MEDS: Venlafaxine HCl XR 75 MG CAP PO SCH (09:16)
[2019-08-16] MEDS: Allopurinol 100 MG TAB PO SCH (09:16)
[2019-08-16] MEDS: predniSONE 10 MG TAB PO SCH (09:16)
[2019-08-16] MEDS: Acetaminophen ER (8hr) 650 MG TAB PO SCH ×2 (09:16→20:50)
[2019-08-16] MEDS: Metoprolol Tartrate 25 MG TAB PO SCH ×2 (09:16→20:48)
[2019-08-16] MEDS: Abiraterone Acetate [Zytiga] 250 MG PO SCH (15:35)
[2019-08-16] MEDS: Fish Oil 1,000 MG CAP PO SCH (20:50)
[2019-08-16] MEDS: Lidocaine Patch Removal 1 EACH TOP SCH (21:21)
[2019-08-17] MEDS: Ciprofloxacin 500 MG TAB PO SCH ×2 (05:03→20:08)
[2019-08-17] MEDS: Nicotine 7 MG PATCH TOP SCH ×2 (05:04→16:34)
[2019-08-17] MEDS: Calcium Carbonate 600 MG + Vit D TAB PO SCH (08:23)
[2019-08-17] MEDS: predniSONE 10 MG TAB PO SCH (08:23)
[2019-08-17] MEDS: Triple Antibiotic Oint 1 GM Packet TOP SCH ×2 (08:23→20:08)
[2019-08-17] MEDS: Acetaminophen ER (8hr) 650 MG TAB PO SCH ×2 (08:24→20:08)
[2019-08-17] MEDS: Allopurinol 100 MG TAB PO SCH (08:24)
[2019-08-17] MEDS: Floranex Packet PO SCH (08:24)
[2019-08-17] MEDS: Oxybutynin 5 MG TAB PO SCH (08:24)
[2019-08-17] MEDS: Venlafaxine HCl XR 75 MG CAP PO SCH (08:24)
[2019-08-17] MEDS: Multivitamin W/ Minerals 1 TAB PO SCH (08:24)
[2019-08-17] MEDS: Furosemide 20 MG TAB PO SCH (08:24)
[2019-08-17] MEDS: Metoprolol Tartrate 25 MG TAB PO SCH ×2 (08:24→20:08)
[2019-08-17] MEDS: Famotidine 20 MG TAB PO SCH (08:24)
[2019-08-17] MEDS: Loratadine 10 MG TAB PO SCH (08:24)
[2019-08-17] MEDS: Abiraterone Acetate [Zytiga] 250 MG PO SCH (15:41)
[2019-08-17] MEDS: Fish Oil 1,000 MG CAP PO SCH (20:08)
[2019-08-17] MEDS: Lidocaine Patch Removal 1 EACH TOP SCH (20:09)
[2019-08-18] MEDS: Ciprofloxacin 500 MG TAB PO SCH ×2 (04:56→20:14)
[2019-08-18] MEDS: Nicotine 7 MG PATCH TOP SCH (04:56)
[2019-08-18] MEDS: Calcium Carbonate 600 MG + Vit D TAB PO SCH (09:54)
[2019-08-18] MEDS: predniSONE 10 MG TAB PO SCH (09:54)
[2019-08-18] MEDS: Loratadine 10 MG TAB PO SCH (09:55)
[2019-08-18] MEDS: Acetaminophen ER (8hr) 650 MG TAB PO SCH ×2 (09:55→20:13)
[2019-08-18] MEDS: Multivitamin W/ Minerals 1 TAB PO SCH (09:55)
[2019-08-18] MEDS: Metoprolol Tartrate 25 MG TAB PO SCH ×2 (09:55→20:13)
[2019-08-18] MEDS: Famotidine 20 MG TAB PO SCH (09:55)
[2019-08-18] MEDS: Floranex Packet PO SCH (09:56)
[2019-08-18] MEDS: Allopurinol 100 MG TAB PO SCH (09:56)
[2019-08-18] MEDS: Furosemide 20 MG TAB PO SCH (09:57)
[2019-08-18] MEDS: Venlafaxine HCl XR 75 MG CAP PO SCH (09:57)
[2019-08-18] MEDS: Triple Antibiotic Oint 1 GM Packet TOP SCH ×2 (09:57→20:14)
[2019-08-18] MEDS: Abiraterone Acetate [Zytiga] 250 MG PO SCH (14:18)
[2019-08-18] MEDS: Lidocaine Patch Removal 1 EACH TOP SCH (20:14)
[2019-08-18] MEDS: Fish Oil 1,000 MG CAP PO SCH (20:14)
[2019-08-19] MEDS: Ciprofloxacin 500 MG TAB PO SCH ×2 (05:30→20:22)
[2019-08-19] MEDS: Nicotine 7 MG PATCH TOP SCH (05:31)
[2019-08-19] MEDS: Famotidine 20 MG TAB PO SCH (08:40)
[2019-08-19] MEDS: Calcium Carbonate 600 MG + Vit D TAB PO SCH (08:41)
[2019-08-19] MEDS: Multivitamin W/ Minerals 1 TAB PO SCH (08:41)
[2019-08-19] MEDS: Acetaminophen ER (8hr) 650 MG TAB PO SCH ×2 (08:41→20:23)
[2019-08-19] MEDS: Venlafaxine HCl XR 75 MG CAP PO SCH (08:41)
[2019-08-19] MEDS: Floranex Packet PO SCH (08:41)
[2019-08-19] MEDS: predniSONE 10 MG TAB PO SCH (08:41)
[2019-08-19] MEDS: Allopurinol 100 MG TAB PO SCH (08:41)
[2019-08-19] MEDS: Loratadine 10 MG TAB PO SCH (08:41)
[2019-08-19] MEDS: Furosemide 20 MG TAB PO SCH (08:41)
[2019-08-19] MEDS: Triple Antibiotic Oint 1 GM Packet TOP SCH ×2 (08:42→20:24)
[2019-08-19] MEDS: Metoprolol Tartrate 25 MG TAB PO SCH ×2 (08:42→20:22)
[2019-08-19] MEDS: Abiraterone Acetate [Zytiga] 250 MG PO SCH (16:02)
[2019-08-19] MEDS: Artificial Tear Sol 15 ML BOT EA EYE PRN (20:21)
[2019-08-19] MEDS: Fish Oil 1,000 MG CAP PO SCH (20:24)
[2019-08-19] MEDS: Lidocaine Patch Removal 1 EACH TOP SCH (20:26)
[2019-08-20] MEDS: Ciprofloxacin 500 MG TAB PO SCH ×2 (07:00→20:41)
[2019-08-20] MEDS: Nicotine 7 MG PATCH TOP SCH ×2 (07:01→07:07)
[2019-08-20] MEDS: Venlafaxine HCl XR 75 MG CAP PO SCH (08:50)
[2019-08-20] MEDS: Acetaminophen ER (8hr) 650 MG TAB PO SCH ×2 (08:51→20:40)
[2019-08-20] MEDS: Allopurinol 100 MG TAB PO SCH (08:51)
[2019-08-20] MEDS: predniSONE 10 MG TAB PO SCH (08:51)
[2019-08-20] MEDS: Floranex Packet PO SCH (08:51)
[2019-08-20] MEDS: Multivitamin W/ Minerals 1 TAB PO SCH (08:51)
[2019-08-20] MEDS: Famotidine 20 MG TAB PO SCH (08:51)
[2019-08-20] MEDS: Calcium Carbonate 600 MG + Vit D TAB PO SCH (08:51)
[2019-08-20] MEDS: Loratadine 10 MG TAB PO SCH (08:52)
[2019-08-20] MEDS: Metoprolol Tartrate 25 MG TAB PO SCH ×2 (08:52→20:41)
[2019-08-20] MEDS: Furosemide 20 MG TAB PO SCH (08:52)
[2019-08-20] MEDS: Triple Antibiotic Oint 1 GM Packet TOP SCH ×2 (08:52→20:40)
[2019-08-20] MEDS: Abiraterone Acetate [Zytiga] 250 MG PO SCH (15:28)
[2019-08-20] MEDS: Fish Oil 1,000 MG CAP PO SCH (20:40)
[2019-08-20] MEDS: Lidocaine Patch Removal 1 EACH TOP SCH (20:41)
[2019-08-21] MEDS: Nicotine 7 MG PATCH TOP SCH (05:24)
[2019-08-21] MEDS: Ciprofloxacin 500 MG TAB PO SCH ×2 (05:24→20:42)
[2019-08-21] MEDS: Acetaminophen ER (8hr) 650 MG TAB PO SCH ×2 (09:35→21:15)
[2019-08-21] MEDS: Furosemide 20 MG TAB PO SCH (09:35)
[2019-08-21] MEDS: Multivitamin W/ Minerals 1 TAB PO SCH (09:36)
[2019-08-21] MEDS: predniSONE 10 MG TAB PO SCH (09:36)
[2019-08-21] MEDS: Loratadine 10 MG TAB PO SCH (09:36)
[2019-08-21] MEDS: Metoprolol Tartrate 25 MG TAB PO SCH ×2 (09:36→20:41)
[2019-08-21] MEDS: Famotidine 20 MG TAB PO SCH (09:36)
[2019-08-21] MEDS: Venlafaxine HCl XR 75 MG CAP PO SCH (09:36)
[2019-08-21] MEDS: Floranex Packet PO SCH (09:36)
[2019-08-21] MEDS: Allopurinol 100 MG TAB PO SCH (09:36)
[2019-08-21] MEDS: Calcium Carbonate 600 MG + Vit D TAB PO SCH (09:36)
[2019-08-21] MEDS: Triple Antibiotic Oint 1 GM Packet TOP SCH ×2 (09:36→20:39)
[2019-08-21] MEDS: Abiraterone Acetate [Zytiga] 250 MG PO SCH (15:37)
[2019-08-21] MEDS: Artificial Tear Sol 15 ML BOT EA EYE PRN (20:39)
[2019-08-21] MEDS: Fish Oil 1,000 MG CAP PO SCH (20:40)
[2019-08-21] MEDS: Lidocaine Patch Removal 1 EACH TOP SCH (20:54)
[2019-08-22] MEDS: Ciprofloxacin 500 MG TAB PO SCH ×2 (05:44→20:17)
[2019-08-22] MEDS: Nicotine 7 MG PATCH TOP SCH (05:48)
[2019-08-22] MEDS: Furosemide 20 MG TAB PO SCH (08:10)
[2019-08-22] MEDS: Calcium Carbonate 600 MG + Vit D TAB PO SCH (08:10)
[2019-08-22] MEDS: Acetaminophen ER (8hr) 650 MG TAB PO SCH ×2 (08:10→20:17)
[2019-08-22] MEDS: predniSONE 10 MG TAB PO SCH (08:10)
[2019-08-22] MEDS: Multivitamin W/ Minerals 1 TAB PO SCH (08:10)
[2019-08-22] MEDS: Allopurinol 100 MG TAB PO SCH (08:10)
[2019-08-22] MEDS: Triple Antibiotic Oint 1 GM Packet TOP SCH ×2 (08:10→20:16)
[2019-08-22] MEDS: Venlafaxine HCl XR 75 MG CAP PO SCH (08:10)
[2019-08-22] MEDS: Metoprolol Tartrate 25 MG TAB PO SCH ×2 (08:10→20:17)
[2019-08-22] MEDS: Famotidine 20 MG TAB PO SCH (08:11)
[2019-08-22] MEDS: Loratadine 10 MG TAB PO SCH (08:11)
[2019-08-22] MEDS: Floranex Packet PO SCH (08:11)
[2019-08-22] MEDS: Acetaminophen 325 MG TAB PO PRN (12:50)
[2019-08-22] MEDS: Abiraterone Acetate [Zytiga] 250 MG PO SCH (13:20)
[2019-08-22] MEDS ORDERED: Milk Of Magnesia 30 ML UDCUP PO SCH (14:15)
[2019-08-22] MEDS: Senokot S 8.6-50 MG TAB PO SCH (20:17)
[2019-08-22] MEDS: Fish Oil 1,000 MG CAP PO SCH (20:17)
[2019-08-22] MEDS: Lidocaine Patch Removal 1 EACH TOP SCH (20:18)
[2019-08-23] MEDS: Ciprofloxacin 500 MG TAB PO SCH ×2 (05:15→20:35)
[2019-08-23] MEDS: Nicotine 7 MG PATCH TOP SCH (05:15)
[2019-08-23] MEDS: Floranex Packet PO SCH (11:41)
[2019-08-23] MEDS: Multivitamin W/ Minerals 1 TAB PO SCH (11:41)
[2019-08-23] MEDS: Allopurinol 100 MG TAB PO SCH (11:41)
[2019-08-23] MEDS: Famotidine 20 MG TAB PO SCH (11:42)
[2019-08-23] MEDS: Acetaminophen ER (8hr) 650 MG TAB PO SCH ×2 (11:42→20:34)
[2019-08-23] MEDS: Venlafaxine HCl XR 75 MG CAP PO SCH (11:43)
[2019-08-23] MEDS: Metoprolol Tartrate 25 MG TAB PO SCH ×2 (11:43→20:36)
[2019-08-23] MEDS: Calcium Carbonate 600 MG + Vit D TAB PO SCH (11:43)
[2019-08-23] MEDS: Loratadine 10 MG TAB PO SCH (11:43)
[2019-08-23] MEDS: Furosemide 20 MG TAB PO SCH (11:44)
[2019-08-23] MEDS: predniSONE 10 MG TAB PO SCH (11:49)
[2019-08-23] MEDS: Triple Antibiotic Oint 1 GM Packet TOP SCH ×2 (11:49→20:35)
[2019-08-23] MEDS: Abiraterone Acetate [Zytiga] 250 MG PO SCH (16:04)
[2019-08-23] MEDS ORDERED: Metoprolol Tartrate 5 MG/5 ML VIAL ONE (20:14)
[2019-08-23] MEDS: Fish Oil 1,000 MG CAP PO SCH (20:35)
[2019-08-23] MEDS: Senokot S 8.6-50 MG TAB PO SCH (20:35)
[2019-08-23] MEDS: Lidocaine Patch Removal 1 EACH TOP SCH (20:35)
[2019-08-24] MEDS: Ciprofloxacin 500 MG TAB PO SCH ×2 (05:19→20:20)
[2019-08-24] MEDS: Nicotine 7 MG PATCH TOP SCH (05:20)
[2019-08-24] MEDS: Loratadine 10 MG TAB PO SCH (09:19)
[2019-08-24] MEDS: Floranex Packet PO SCH (09:19)
[2019-08-24] MEDS: Allopurinol 100 MG TAB PO SCH (09:19)
[2019-08-24] MEDS: Acetaminophen ER (8hr) 650 MG TAB PO SCH ×2 (09:19→20:20)
[2019-08-24] MEDS: Famotidine 20 MG TAB PO SCH (09:19)
[2019-08-24] MEDS: Triple Antibiotic Oint 1 GM Packet TOP SCH ×2 (09:19→20:20)
[2019-08-24] MEDS: Venlafaxine HCl XR 75 MG CAP PO SCH (09:20)
[2019-08-24] MEDS: Furosemide 20 MG TAB PO SCH (09:20)
[2019-08-24] MEDS: predniSONE 10 MG TAB PO SCH (09:20)
[2019-08-24] MEDS: Calcium Carbonate 600 MG + Vit D TAB PO SCH (09:21)
[2019-08-24] MEDS: Multivitamin W/ Minerals 1 TAB PO SCH (09:22)
[2019-08-24] MEDS: Metoprolol Tartrate 25 MG TAB PO SCH ×2 (09:24→20:20)
[2019-08-24] MEDS: Abiraterone Acetate [Zytiga] 250 MG PO SCH (15:03)
[2019-08-24] MEDS: Senokot S 8.6-50 MG TAB PO SCH (20:20)
[2019-08-24] MEDS: Artificial Tear Sol 15 ML BOT EA EYE PRN (20:20)
[2019-08-24] MEDS: Fish Oil 1,000 MG CAP PO SCH (20:20)
[2019-08-24] MEDS: Nystatin 500,000 UNITS/5 ML UDCUP SSW SCH (20:20)
[2019-08-24] MEDS: Lidocaine Patch Removal 1 EACH TOP SCH (20:27)
[2019-08-25] MEDS: Ciprofloxacin 500 MG TAB PO SCH (05:53)
[2019-08-25] MEDS: Nicotine 7 MG PATCH TOP SCH (05:53)
[2019-08-25] MEDS: Floranex Packet PO SCH (08:57)
[2019-08-25] MEDS: Triple Antibiotic Oint 1 GM Packet TOP SCH ×2 (08:57→21:02)
[2019-08-25] MEDS: Venlafaxine HCl XR 75 MG CAP PO SCH (08:58)
[2019-08-25] MEDS: Nystatin 500,000 UNITS/5 ML UDCUP SSW SCH ×3 (08:58→21:02)
[2019-08-25] MEDS: Acetaminophen ER (8hr) 650 MG TAB PO SCH ×2 (08:59→21:01)
[2019-08-25] MEDS: Multivitamin W/ Minerals 1 TAB PO SCH (08:59)
[2019-08-25] MEDS: Allopurinol 100 MG TAB PO SCH (08:59)
[2019-08-25] MEDS: Famotidine 20 MG TAB PO SCH (08:59)
[2019-08-25] MEDS: Loratadine 10 MG TAB PO SCH (08:59)
[2019-08-25] MEDS: predniSONE 10 MG TAB PO SCH (09:00)
[2019-08-25] MEDS: Metoprolol Tartrate 25 MG TAB PO SCH ×2 (09:00→21:02)
[2019-08-25] MEDS: Furosemide 20 MG TAB PO SCH (09:00)
[2019-08-25] MEDS: Calcium Carbonate 600 MG + Vit D TAB PO SCH (09:00)
[2019-08-25] MEDS: Abiraterone Acetate [Zytiga] 250 MG PO SCH (15:34)
[2019-08-25] MEDS: Senokot S 8.6-50 MG TAB PO SCH (21:02)
[2019-08-25] MEDS: Fish Oil 1,000 MG CAP PO SCH (21:02)
[2019-08-25] MEDS: Lidocaine Patch Removal 1 EACH TOP SCH (21:03)
[2019-08-26] MEDS: Nicotine 7 MG PATCH TOP SCH (05:55)
[2019-08-26] MEDS: Triple Antibiotic Oint 1 GM Packet TOP SCH ×2 (09:30→20:47)
[2019-08-26] MEDS: Allopurinol 100 MG TAB PO SCH (09:30)
[2019-08-26] MEDS: Acetaminophen ER (8hr) 650 MG TAB PO SCH ×2 (09:31→20:46)
[2019-08-26] MEDS: Famotidine 20 MG TAB PO SCH (09:41)
[2019-08-26] MEDS: Venlafaxine HCl XR 75 MG CAP PO SCH (09:41)
[2019-08-26] MEDS: Metoprolol Tartrate 25 MG TAB PO SCH ×2 (09:42→20:47)
[2019-08-26] MEDS: Nystatin 500,000 UNITS/5 ML UDCUP SSW SCH ×3 (09:42→20:47)
[2019-08-26] MEDS: Furosemide 20 MG TAB PO SCH (09:42)
[2019-08-26] MEDS: Loratadine 10 MG TAB PO SCH (09:42)
[2019-08-26] MEDS: Multivitamin W/ Minerals 1 TAB PO SCH (09:42)
[2019-08-26] MEDS: Calcium Carbonate 600 MG + Vit D TAB PO SCH (09:42)
[2019-08-26] MEDS: predniSONE 10 MG TAB PO SCH (09:42)
[2019-08-26] MEDS: Floranex Packet PO SCH (09:42)
[2019-08-26] MEDS: Abiraterone Acetate [Zytiga] 250 MG PO SCH (15:25)
[2019-08-26] MEDS: Senokot S 8.6-50 MG TAB PO SCH (20:47)
[2019-08-26] MEDS: Fish Oil 1,000 MG CAP PO SCH (20:47)
[2019-08-26] MEDS: Lidocaine Patch Removal 1 EACH TOP SCH (20:48)
[2019-08-27] MEDS: Nicotine 7 MG PATCH TOP SCH (05:17)
[2019-08-27] MEDS: Allopurinol 100 MG TAB PO SCH (09:21)
[2019-08-27] MEDS: Multivitamin W/ Minerals 1 TAB PO SCH (09:22)
[2019-08-27] MEDS: Acetaminophen ER (8hr) 650 MG TAB PO SCH ×2 (09:22→20:47)
[2019-08-27] MEDS: Venlafaxine HCl XR 75 MG CAP PO SCH (09:22)
[2019-08-27] MEDS: Metoprolol Tartrate 25 MG TAB PO SCH ×2 (09:22→20:48)
[2019-08-27] MEDS: Calcium Carbonate 600 MG + Vit D TAB PO SCH (09:22)
[2019-08-27] MEDS: Furosemide 20 MG TAB PO SCH (09:22)
[2019-08-27] MEDS: Famotidine 20 MG TAB PO SCH (09:22)
[2019-08-27] MEDS: Nystatin 500,000 UNITS/5 ML UDCUP SSW SCH ×3 (09:23→20:46)
[2019-08-27] MEDS: predniSONE 10 MG TAB PO SCH (09:23)
[2019-08-27] MEDS: Loratadine 10 MG TAB PO SCH (09:23)
[2019-08-27] MEDS: Triple Antibiotic Oint 1 GM Packet TOP SCH ×2 (09:23→20:48)
[2019-08-27] MEDS: Floranex Packet PO SCH (09:23)
[2019-08-27] MEDS: Abiraterone Acetate [Zytiga] 250 MG PO SCH (15:39)
[2019-08-27] MEDS: Artificial Tear Sol 15 ML BOT EA EYE PRN (20:46)
[2019-08-27] MEDS: Senokot S 8.6-50 MG TAB PO SCH (20:47)
[2019-08-27] MEDS: Fish Oil 1,000 MG CAP PO SCH (20:47)
[2019-08-27] MEDS: Lidocaine Patch Removal 1 EACH TOP SCH (21:05)
[2019-08-28] MEDS: Nicotine 7 MG PATCH TOP SCH (06:05)
[2019-08-28] MEDS: Triple Antibiotic Oint 1 GM Packet TOP SCH ×2 (08:27→20:50)
[2019-08-28] MEDS: Calcium Carbonate 600 MG + Vit D TAB PO SCH (08:28)
[2019-08-28] MEDS: Famotidine 20 MG TAB PO SCH (08:28)
[2019-08-28] MEDS: Venlafaxine HCl XR 75 MG CAP PO SCH (08:28)
[2019-08-28] MEDS: Nystatin 500,000 UNITS/5 ML UDCUP SSW SCH ×3 (08:28→20:50)
[2019-08-28] MEDS: Floranex Packet PO SCH (08:29)
[2019-08-28] MEDS: Loratadine 10 MG TAB PO SCH (08:29)
[2019-08-28] MEDS: Metoprolol Tartrate 25 MG TAB PO SCH ×2 (08:29→20:50)
[2019-08-28] MEDS: Acetaminophen ER (8hr) 650 MG TAB PO SCH ×2 (08:29→20:50)
[2019-08-28] MEDS: Allopurinol 100 MG TAB PO SCH (08:29)
[2019-08-28] MEDS: Furosemide 20 MG TAB PO SCH (08:29)
[2019-08-28] MEDS: predniSONE 10 MG TAB PO SCH (08:29)
[2019-08-28] MEDS: Multivitamin W/ Minerals 1 TAB PO SCH (08:30)
[2019-08-28] MEDS: Abiraterone Acetate [Zytiga] 250 MG PO SCH (14:33)
[2019-08-28] MEDS: Lidocaine Patch Removal 1 EACH TOP SCH (20:50)
[2019-08-28] MEDS: Senokot S 8.6-50 MG TAB PO SCH (20:50)
[2019-08-28] MEDS: Fish Oil 1,000 MG CAP PO SCH (20:50)
[2019-08-29] MEDS: Nicotine 7 MG PATCH TOP SCH (05:06)
[2019-08-29] MEDS: Triple Antibiotic Oint 1 GM Packet TOP SCH ×2 (08:26→20:31)
[2019-08-29] MEDS: Floranex Packet PO SCH (08:27)
[2019-08-29] MEDS: Nystatin 500,000 UNITS/5 ML UDCUP SSW SCH ×3 (08:27→20:31)
[2019-08-29] MEDS: Metoprolol Tartrate 25 MG TAB PO SCH ×2 (08:27→20:31)
[2019-08-29] MEDS: Famotidine 20 MG TAB PO SCH (08:27)
[2019-08-29] MEDS: Allopurinol 100 MG TAB PO SCH (08:27)
[2019-08-29] MEDS: Multivitamin W/ Minerals 1 TAB PO SCH (08:28)
[2019-08-29] MEDS: Loratadine 10 MG TAB PO SCH (08:28)
[2019-08-29] MEDS: Venlafaxine HCl XR 75 MG CAP PO SCH (08:28)
[2019-08-29] MEDS: predniSONE 10 MG TAB PO SCH (08:28)
[2019-08-29] MEDS: Furosemide 20 MG TAB PO SCH (08:28)
[2019-08-29] MEDS: Acetaminophen ER (8hr) 650 MG TAB PO SCH ×2 (08:28→20:31)
[2019-08-29] MEDS: Calcium Carbonate 600 MG + Vit D TAB PO SCH (08:28)
[2019-08-29] MEDS: Abiraterone Acetate [Zytiga] 250 MG PO SCH (15:34)
[2019-08-29] MEDS: Fish Oil 1,000 MG CAP PO SCH (20:31)
[2019-08-29] MEDS: Senokot S 8.6-50 MG TAB PO SCH (20:31)
[2019-08-29] MEDS: Lidocaine Patch Removal 1 EACH TOP SCH (20:33)
[2019-08-29] MEDS ORDERED: Nystatin 500,000 UNITS/5 ML UDCUP PO SCH (21:00)
[2019-08-30] MEDS: Nicotine 7 MG PATCH TOP SCH (05:20)
[2019-08-30 05:38] VITALS: BMI 31.0
[2019-08-30] MEDS: Calcium Carbonate 600 MG + Vit D TAB PO SCH (08:49)
[2019-08-30] MEDS: Floranex Packet PO SCH (08:49)
[2019-08-30] MEDS: Venlafaxine HCl XR 75 MG CAP PO SCH (08:49)
[2019-08-30] MEDS: Nystatin 500,000 UNITS/5 ML UDCUP SSW SCH (08:49)
[2019-08-30] MEDS: Allopurinol 100 MG TAB PO SCH (08:49)
[2019-08-30] MEDS: Triple Antibiotic Oint 1 GM Packet TOP SCH (08:49)
[2019-08-30] MEDS: Loratadine 10 MG TAB PO SCH (08:50)
[2019-08-30] MEDS: Acetaminophen ER (8hr) 650 MG TAB PO SCH (08:50)
[2019-08-30] MEDS: Furosemide 20 MG TAB PO SCH (08:50)
[2019-08-30] MEDS: Famotidine 20 MG TAB PO SCH (08:50)
[2019-08-30] MEDS: Multivitamin W/ Minerals 1 TAB PO SCH (08:50)
[2019-08-30] MEDS: Metoprolol Tartrate 25 MG TAB PO SCH (08:50)
[2019-08-30] MEDS: predniSONE 10 MG TAB PO SCH (08:50)
[2019-08-30 12:09] VITALS: BP 140/65; TEMP 98.2
--- NOTE | 2019-09-06 23:22 | PQF ---
Federico Lacy KIA E MD [id number] CLINICAL DOCUMENTATION CLARIFICATION FORM: POST DISCHARGE Addendum to original discharge summary date: ____ Late entry note date: __ DATE: 09/06/2019 ATTN:YOSEF LOMBARDO MD Please exercise your independent, professional judgment in responding to the clarification form. Clinical indicators are provided on the bottom of this form for your review Please check appropriate box(s): kindly clarify the diagnosis occasioning on admission [ x] Pyelonephritis [ ] Renal calculus [ ] Other diagnosis [ ] Unable to determine For continuity of documentation, please document condition throughout progress notes and discharge summary. Thank You. CLINICAL INDICATORS - SIGNS / SYMPTOMS / LABS S/P Pyelonephritis-Documented in Scanned PN note on 08/03 S/P Renal stone-Documented in Scanned PN note on 08/03 Generalized weakness-Documented in Scanned PN note on 08/[address] of abdomen and pelvis which indicated left high grade obstructing stone causing hydronephrosis most likely the source of it - Documented in Consultation on 08/29 by Marisol Maloney MD RISK FACTORS S/P Pyelonephritis-Documented in Scanned PN note on 08/03 S/P Renal stone-Documented in Scanned PN note on 08/03 TREATMENTS: Ciprofloxacin 500 mg PO-Documented in Medication snapshot Tramadol 50 mg PO -Documented in Medication snapshot [employer] Winform Viewer (This form is maintained as a part of the permanent medical record) 2014 [email or web address]. All Rights Reserved [email or web address]
== END 2019-08-30 12:02 | disposition home or self-care (01) | DRG 690 ==
LOC: BURMED 15:10 → UNDOADMIN 17:15 → BURMED 08-11 17:40
PROVIDERS: ADMIT Family Medicine; ATTEND Family Medicine
DX: N12 Tubulo-interstitial nephritis, not specified as acute or chronic (principal); D61.818 Other pancytopenia; N20.0 Calculus of kidney; R41.0 Disorientation, unspecified; E66.9 Obesity, unspecified; Z68.31 Body mass index [BMI] 31.0-31.9, adult; G47.30 Sleep apnea, unspecified; J44.9 Chronic obstructive pulmonary disease, unspecified; I48.91 Unspecified atrial fibrillation; M10.9 Gout, unspecified; Z88.8 Allergy status to other drugs, medicaments and biological substances; Z85.46 Personal history of malignant neoplasm of prostate
CPT/HCPCS: 36415; 36416; 72192; 80053; 82565; 85014; 85018; 85025; 85049; 87086; J1650; J7512; Q0162

== ENCOUNTER 2020-02-09 10:05 | Emergency (ER) | payer MEDICARE, BC ==
[2020-02-09] MEDS ORDERED: Sterile Water 10 ML ONE (10:49)
[2020-02-09] MEDS ORDERED: Cefepime 2 GM VIAL ONE (10:49)
[2020-02-09] MEDS ORDERED: Acetaminophen 325 MG TAB ONE (10:49)
[2020-02-09 11:13] LABS: #Basophils 0.1 thou/uL (0.0-0.2); #Eosinphils 0.2 thou/uL (0.0-0.7); #Lymphocytes 2.1 thou/uL (1.20-3.40); #Monocytes 1.8 thou/uL (0.11-0.59); #Neutrophils 9.8 thou/uL (1.40-6.50); %Basophils 0.5 % (0.0-1.0); %Eosinophils 1.4 % (0.0-10.0); %Monocytes 12.7 % (0.0-10.0); %Neutrophils 70.4 % (42.0-75.0); Hemoglobin 14.6 g/dL (14.0-18.0); Mean Corpuscular HGB CONC 31.1 g/dL (32.0-36.0); Mean Platelet Volume 7.3 fL (7.4-10.4); Platelet Count 206 thou/uL (130-400); RBC Distribution Width 13.2 % (11.5-14.5); Red Blood Cell (RBC) Count 4.55 mill/uL (4.70-6.10); White Blood Cell (WBC) Count 13.9 thou/uL (4.8-10.8)
[2020-02-09 11:16] LABS: ALT (SGPT) 14 U/L (8-55); AST (SGOT) 13 U/L (5-34); Albumin 3.9 g/dL (3.4-4.8); Alkaline Phosphatase 54 U/L (40-110); Anion Gap 18 mmol/L (10-20); BUN (Urea Nitrogen) 30 mg/dL (8.4-25.7); Bilirubin, Total 0.6 mg/dL (0.2-1.2); Calc. Creatinine Clearance 0 mL/min (70-130); Calcium 8.9 mg/dL (7.8-10.44); Carbon Dioxide 29 mmol/L (23-31); Chloride 98 mmol/L (98-107); Estimated GFR-MDRD 43; Globulin 2.5 g/dL (2.4-3.5); Glucose 150 mg/dL (83-110); Lipase 6 U/L (8-78); Potassium 3.7 mmol/L (3.5-5.1); Protein, Total 6.4 g/dL (5.8-8.1); Sodium 141 mmol/L (136-145)
--- NOTE | 2020-02-09 11:21 | RAD ---
Chest one view HISTORY: Cough. COMPARISON: 07/30/2019. FINDINGS: Cardiac silhouette is magnified by projection and upper limits of normal in size. Pulmonary vasculature remains upper limits of normal. Mediastinum is midline. No lobar consolidation or evidence of pneumothorax. Prominent degenerative changes of the shoulders. Old left rib fractures. IMPRESSION : Borderline pulmonary vascular congestion is stable. No active cardiopulmonary abnormalities are otherwise demonstrated.
[2020-02-09 11:46] LABS: Bilirubin Small (Negative); Blood, Urine Trace (Negative); Clarity Clear (Clear); Glucose, Urine (Dipstick) Negative (Negative); Ketone, Urine 15 mg/dL (Negative); Leukocyte Negative (Negative); Nitrite Negative (Negative); Protein, Urine (Dipstick) > or equal to 300 mg/dL (Neg-Trace); Urobilinogen 0.2 mg/dL (Less than 2)
[2020-02-09 11:53] LABS: Bacteria/HPF 2+ HPF (None Seen); Mucous/LPF 1+ LPF (<2+); RBC/HPF 0-3 HPF (0-3); Squamous Epithelial 0-3 HPF (0-3); WBC/HPF 0-3 HPF (0-3)
--- NOTE | 2020-02-09 12:32 | CT ---
CT ABDOMEN AND PELVIS WITHOUT IV CONTRAST: Date: 02/09/2020 INDICATION: History of vomiting and diarrhea, abdominal pain. COMPARISON: Prior exam dated 07/27/2019. FINDINGS: There is bibasilar atelectasis. There is a small hiatal hernia. Unopacified liver, gallbladder, pancreas, adrenal glands and spleen appear within normal limits. No renal or ureteral calculus evident. No hydronephrosis demonstrated. There is nonspecific gas seen adjacent to the proximal left iliopsoas which may be related to vacuum disc phenomenon from the jc cent L1-L2 intervertebral disc level. Otherwise, iliopsoas is normal appearing. No free fluid is demo nstrated. There is a stable enlarged lymph node adjacent to the left common iliac vasculature measuring 2.8 cm. This is stable to the comparison dated 04/17/2018. There is postprocedural change of a prior prostatectomy. The bladder is decompressed. The rectum and perirectal soft tissues are unremarkable appearing. There is scattered diverticula involving the colo n without evidence of active diverticulitis. There is a normal appendix in the right upper quadrant. Unopacified small bowel is normal caliber. There is diffuse osteopenia. Mild compression abnormality of T12 is similar appearing. Degenerative l evoscoliosis of the lumbar spine is similar appearing. IMPRESSION: 1. Mild bibasilar atelectasis. 2. Development of some left perivertebral soft tissue gas extending into the left iliopsoas, adjacen t to an area of vacuum disc phenomenon at L1-L2, possibly related to left lateral disc extrusion. 3. Stable enlarged left common iliac vasculature lymph node measuring 2.8 cm. 4. Stable changes of prior prostatectomy. 5. Other chronic findings as above. POS:
== END 2020-02-09 13:40 | disposition short-term general hospital (02) ==
LOC: BURERS 10:05
DX: R50.9 Fever, unspecified (principal); R00.0 Tachycardia, unspecified; R11.2 Nausea with vomiting, unspecified; R10.32 Left lower quadrant pain; M10.9 Gout, unspecified; J44.9 Chronic obstructive pulmonary disease, unspecified; G47.30 Sleep apnea, unspecified; J45.909 Unspecified asthma, uncomplicated; F32.9 Major depressive disorder, single episode, unspecified; F17.220 Nicotine dependence, chewing tobacco, uncomplicated; Z79.899 Other long term (current) drug therapy
CPT/HCPCS: 36415; 71045; 74176; 80053; 81003; 81015; 83605; 83690; 83880; 84484; 85025; 87040; 87086; 93005; 96361; 96374; J0692

== ENCOUNTER 2020-06-26 10:22 | Emergency (ER) | payer MEDICARE, BC ==
[2020-06-26] MEDS ORDERED: predniSONE 20 MG TAB ONE (11:48)
--- NOTE | 2020-06-26 17:47 | RAD ---
RIGHT HIP TWO VIEWS: 06/26/20 Comparison is made with the 08/05/19 study. No fracture, dislocation, or hip joint narrowing was seen. Arthritic changes are not very prominent. There has been no adverse exchange architect the interval. IMPRESSION: No acute finding. POS: HOME
== END 2020-06-26 11:58 | disposition home or self-care (01) ==
LOC: BURERS 10:22
DX: M16.31 Unilateral osteoarthritis resulting from hip dysplasia, right hip (principal); J44.9 Chronic obstructive pulmonary disease, unspecified; M10.9 Gout, unspecified; F17.220 Nicotine dependence, chewing tobacco, uncomplicated; Z79.51 Long term (current) use of inhaled steroids; Z79.899 Other long term (current) drug therapy
CPT/HCPCS: J7512

== ENCOUNTER 2020-07-08 13:39 | Inpatient (IN) | payer MEDICARE, BC ==
[2020-07-08] MEDS ORDERED: Albuterol Sulfate 2.5 mg/3 ml Neb NEB PRN (16:40)
[2020-07-08] MEDS ORDERED: Senokot S 8.6-50 MG TAB PO PRN (16:40)
--- NOTE | 2020-07-08 18:01 | HP ---
CHIEF COMPLAINT: Generalized weakness. HISTORY OF PRESENT ILLNESS: This is an 84-year-old male with past medical history significant for metastatic prostate cancer, COPD/asthma, and hypertension, who presented to [facility] Emergency Department in [place] on 07/03/2020 with complaints of worsening shortness of breath and cough over 3-4 day timeframe. Subsequent workup was consistent with sepsis secondary to a left lower lobe pneumonia. The patient was started empirically on vancomycin and Zosyn with cultures obtained. His COVID testing was negative. As the patient improved, his antibiotic course was tapered to oral Augmentin of which he is to complete an additional 2 days. He is on chronic prednisone therapy in relation to his history of metastatic prostate cancer, however, he is currently on a slightly higher dose due to his respiratory compromise; he is to complete 2 additional days of prednisone 40 mg prior to return to his usual 10 mg per day dosing. He otherwise has transitioned here on his usual medications beyond those specified thus far. He did transfer to our facility to participate with physical therapy and occupational therapy secondary to physical deconditioning. He normally does use the assistance of a walker when ambulating. He is currently stable on room air. He has good insight into his reason for admission to our senior living facility. PAST MEDICAL HISTORY: Includes asthma, COPD, depression, gout, hypertension, prostate cancer, sleep apnea, hypothyroidism, history of compensated CHF as well. PAST SURGICAL HISTORY: Includes heart ablation, knee surgery, prostate surgery, skin biopsy, and spine surgery. SOCIAL HISTORY: The patient does not smoke or drink alcohol. FAMILY HISTORY: Noncontributory. ALLERGIES: ASPIRIN, DEXTROMETHORPHAN, GUAIFENESIN, IBUPROFEN/NAPROXEN. HOME MEDICATIONS: 1. Prednisone 10 mg daily. 2. Tylenol 1300 mg b.i.d. p.r.n. 3. PreserVision AREDS 2 capsules b.i.d. 4. Vitamin B12 1000 mcg intramuscular q.30 days. 5. Krill oil one tablet daily. 6. Zytiga 1000 mg daily. 7. Docusate sodium one capsule daily. 8. Levothyroxine daily. 9. Famotidine 20 mg daily. 10. Ventolin nebulizer 2.5 mg p.r.n. 11. Fluticasone/salmeterol 250-50 one puff b.i.d. 12. Lasix 2 tabs daily. 13. Calcium carbonate plus vitamin D 1 tab daily. 14. Allopurinol 300 mg daily. 15. Venlafaxine XR 150 mg daily. 16. Senokot one tab q.h.s. p.r.n. 17. Daily multivitamin. 18. Toprol-XL 1 tab b.i.d. 19. Zyrtec 10 mg daily. 20. DuoNeb 3 mL nebs q.6 p.r.n. REVIEW OF SYSTEMS: GENERAL: The patient denies fever. EARS, NOSE, AND THROAT: Denies sore throat, nasal drainage or congestion. CARDIOVASCULAR: Denies chest pain or palpitations. RESPIRATORY: Complains of intermittent cough. GASTRO: Denies abdominal pain, nausea, vomiting, diarrhea, or constipation. GENITOURINARY: Denies dysuria. MUSCULOSKELETAL: Denies joint pain. DERM: Denies rash. NEURO: Denies headache. LABORATORY: None at this time. IMAGING: None at this time. PHYSICAL EXAMINATION: VITAL SIGNS: Temperature is 98.3, pulse is 90, respiratory rate is 18, oxygen 98% on room air, blood pressure 169/84. GENERAL: Alert and oriented, in no acute distress. HEAD, EYES, EARS, NOSE, AND THROAT: Normocephalic and atraumatic. Pupils are equal, round, and reactive to light. Extraocular muscles are intact bilaterally. Moist mucous membranes. NECK: Supple with no lymphadenopathy. CARDIOVASCULAR: Regular rate and rhythm. Normal S1, S2. RESPIRATORY: No rhonchi or rales. There is one mild expiratory wheeze to the lung base. No respiratory distress. ABDOMEN: Soft and nontender to palpation. No rebound or guarding. EXTREMITIES: There is trace to 1+ pitting bilateral lower extremity edema. No clubbing or cyanosis. SKIN: No rashes. NEUROLOGIC: Nonfocal with cranial nerves II through XII grossly intact. MUSCULOSKELETAL: Generalized weakness. ASSESSMENT AND PLAN: 1. Left lower lobe pneumonia. We will complete the advised course of Augmentin through 07/10/2020. 2. Generalized weakness. The patient will participate with Physical Therapy and Occupational Therapy. 3. Metastatic prostate cancer. We will resume patient's baseline medications for this issue. 4. Chronic obstructive pulmonary disease/asthma. We will resume the patient's controller medication. He is stable on room air. 5. Hypertension. BP is currently mildly elevated from his baseline, and felt to be secondary to intravenous fluids. We will trend and resume his normal blood pressure medications. 6. History of congestive heart failure compensated. We will resume the patient's Lasix dosing, may follow daily weights. 7. Hypothyroidism. We will resume levothyroxine. 8. Gout. The patient is on daily allopurinol for prophylaxis. 9. Depression. We will resume the patient's venlafaxine as typically taken. 10. Code status is DNAR. DISPOSITION: We will plan for the patient to discharge home when cleared by therapy, will need to decide between Home Health versus outpatient therapy prior to discharge. Job ID: [id number] MTDD
[2020-07-08] MEDS: Amoxicillin/Potassium Clav 875 MG TAB PO SCH (20:56)
[2020-07-08] MEDS: Acetaminophen ER (8hr) 650 MG TAB PO SCH (20:56)
[2020-07-08] MEDS: Vit A,C & E/Lutein/Minerals Tablet PO SCH (20:56)
[2020-07-08] MEDS: Docusate 100 MG CAP PO SCH (20:56)
[2020-07-08] MEDS: Mometasone/Formoterol 200/5 60 PUFF INH SCH (20:57)
[2020-07-09] MEDS: Mometasone/Formoterol 200/5 60 PUFF INH SCH ×2 (06:08→21:03)
[2020-07-09] MEDS: Levothyroxine Sodium 50 MCG TAB PO SCH (06:08)
[2020-07-09] MEDS ORDERED: Cyanocobalamin 1000 MCG/ML VIAL IM SCH (09:00)
[2020-07-09] MEDS: Multivitamin W/ Minerals 1 TAB PO SCH (09:19)
[2020-07-09] MEDS: Calcium Carbonate 600 MG + Vit D TAB PO SCH (09:19)
[2020-07-09] MEDS: Famotidine 20 MG TAB PO SCH (09:19)
[2020-07-09] MEDS: Furosemide 40 MG TAB PO SCH (09:19)
[2020-07-09] MEDS: Vit A,C & E/Lutein/Minerals Tablet PO SCH ×2 (09:19→21:02)
[2020-07-09] MEDS: Amoxicillin/Potassium Clav 875 MG TAB PO SCH ×2 (09:20→21:02)
[2020-07-09] MEDS: Acetaminophen ER (8hr) 650 MG TAB PO SCH ×2 (09:20→21:02)
[2020-07-09] MEDS: Allopurinol 100 MG TAB PO SCH (09:20)
[2020-07-09] MEDS: Loratadine 10 MG TAB PO SCH (09:20)
[2020-07-09] MEDS: Venlafaxine HCl XR 75 MG CAP PO SCH (09:20)
[2020-07-09] MEDS: predniSONE 20 MG TAB PO SCH (09:21)
[2020-07-09] MEDS: AST PO SCH ×2 (10:02→10:28)
[2020-07-09] MEDS: EPA PO SCH ×2 (10:02→10:28)
[2020-07-09] MEDS: [UNRECOGNIZED DRUG - OTHER] PO SCH ×2 (10:02→10:28)
[2020-07-09] MEDS: LACTOBACILLUS RHAMNOSUS GG PO SCH ×2 (10:02→10:27)
[2020-07-09] MEDS: DHA PO SCH ×2 (10:02→10:28)
[2020-07-09] MEDS: PHOSPHO PO SCH ×2 (10:02→10:28)
[2020-07-09] MEDS: KRILL PO SCH ×2 (10:02→10:28)
[2020-07-09] MEDS ORDERED: FLU VACC QS2020-21(65YR UP)/PF 240 MCG/0.7 ML SYRINGE IM ONE (12:30)
[2020-07-09] MEDS ORDERED: Abiraterone Acetate [Zytiga] 250 MG Tablet PO SCH (14:30)
[2020-07-09] MEDS: Abiraterone Acetate [Zytiga] 250 MG Tablet PO SCH (16:00)
[2020-07-09] MEDS: Docusate 100 MG CAP PO SCH (21:02)
[2020-07-10] MEDS: Levothyroxine Sodium 50 MCG TAB PO SCH (05:05)
[2020-07-10] MEDS: Acetaminophen ER (8hr) 650 MG TAB PO SCH ×2 (08:47→20:25)
[2020-07-10] MEDS: predniSONE 20 MG TAB PO SCH (08:47)
[2020-07-10] MEDS: Allopurinol 100 MG TAB PO SCH (08:47)
[2020-07-10] MEDS: Venlafaxine HCl XR 75 MG CAP PO SCH (08:48)
[2020-07-10] MEDS: Saccharomyces boulardii 250 MG CAP PO SCH (08:49)
[2020-07-10] MEDS: Multivitamin W/ Minerals 1 TAB PO SCH (08:49)
[2020-07-10] MEDS: Loratadine 10 MG TAB PO SCH (08:49)
[2020-07-10] MEDS: Calcium Carbonate 600 MG + Vit D TAB PO SCH (08:49)
[2020-07-10] MEDS: Furosemide 40 MG TAB PO SCH (08:49)
[2020-07-10] MEDS: Vit A,C & E/Lutein/Minerals Tablet PO SCH ×2 (08:49→20:26)
[2020-07-10] MEDS: Amoxicillin/Potassium Clav 875 MG TAB PO SCH ×2 (08:49→20:27)
[2020-07-10] MEDS: Mometasone/Formoterol 200/5 60 PUFF INH SCH ×2 (08:59→20:29)
[2020-07-10] MEDS: Famotidine 20 MG TAB PO SCH (09:08)
[2020-07-10] MEDS: AST PO SCH (10:22)
[2020-07-10] MEDS: EPA PO SCH (10:22)
[2020-07-10] MEDS: DHA PO SCH (10:22)
[2020-07-10] MEDS: [UNRECOGNIZED DRUG - OTHER] PO SCH (10:22)
[2020-07-10] MEDS: KRILL PO SCH (10:22)
[2020-07-10] MEDS: PHOSPHO PO SCH (10:22)
[2020-07-10] MEDS: Abiraterone Acetate [Zytiga] 250 MG Tablet PO SCH (15:14)
[2020-07-10] MEDS: Docusate 100 MG CAP PO SCH (20:26)
[2020-07-11] MEDS: Levothyroxine Sodium 50 MCG TAB PO SCH (05:17)
[2020-07-11 05:34] LABS: #Eosinphils 0.1 thou/uL (0.0-0.7); #Lymphocytes 1.6 thou/uL (1.20-3.40); #Monocytes 0.7 thou/uL (0.11-0.59); #Neutrophils 5.2 thou/uL (1.40-6.50); %Basophils 0.6 % (0.0-1.0); %Eosinophils 0.8 % (0.0-10.0); %Lymphocytes 20.9 % (21.0-51.0); %Monocytes 8.6 % (0.0-10.0); %Neutrophils 69.2 % (42.0-75.0); Mean Corpuscular Hemoglobin 30.9 pg (27.0-31.0); Mean Platelet Volume 6.9 fL (7.4-10.4); Platelet Count 266 thou/uL (130-400); RBC Distribution Width 14.5 % (11.5-14.5); Red Blood Cell (RBC) Count 3.57 mill/uL (4.70-6.10); White Blood Cell (WBC) Count 7.5 thou/uL (4.8-10.8)
[2020-07-11 05:42] LABS: ALT (SGPT) 13 U/L (8-55); AST (SGOT) 11 U/L (5-34); Albumin 3.2 g/dL (3.4-4.8); Alkaline Phosphatase 64 U/L (40-110); Anion Gap 15 mmol/L (10-20); BUN (Urea Nitrogen) 33 mg/dL (8.4-25.7); Bilirubin, Total 0.2 mg/dL (0.2-1.2); Calc. Creatinine Clearance 69 mL/min (70-130); Calcium 8.5 mg/dL (7.8-10.44); Carbon Dioxide 30 mmol/L (23-31); Chloride 99 mmol/L (98-107); Globulin 2.1 g/dL (2.4-3.5); Glucose 120 mg/dL (83-110); Potassium 3.9 mmol/L (3.5-5.1); Protein, Total 5.3 g/dL (5.8-8.1); Sodium 140 mmol/L (136-145)
[2020-07-11] MEDS: Mometasone/Formoterol 200/5 60 PUFF INH SCH ×2 (09:26→20:12)
[2020-07-11] MEDS: Venlafaxine HCl XR 75 MG CAP PO SCH (09:32)
[2020-07-11] MEDS: Multivitamin W/ Minerals 1 TAB PO SCH ×2 (09:32→09:41)
[2020-07-11] MEDS: Acetaminophen ER (8hr) 650 MG TAB PO SCH ×2 (09:39→20:10)
[2020-07-11] MEDS: Vit A,C & E/Lutein/Minerals Tablet PO SCH ×2 (09:40→20:10)
[2020-07-11] MEDS: Calcium Carbonate 600 MG + Vit D TAB PO SCH (09:41)
[2020-07-11] MEDS: Furosemide 40 MG TAB PO SCH (09:42)
[2020-07-11] MEDS: Allopurinol 100 MG TAB PO SCH (09:45)
[2020-07-11] MEDS: predniSONE 10 MG TAB PO SCH (09:46)
[2020-07-11] MEDS: Loratadine 10 MG TAB PO SCH (09:46)
[2020-07-11] MEDS: [UNRECOGNIZED DRUG - OTHER] PO SCH (09:47)
[2020-07-11] MEDS: AST PO SCH (09:47)
[2020-07-11] MEDS: Famotidine 20 MG TAB PO SCH (09:47)
[2020-07-11] MEDS: PHOSPHO PO SCH (09:47)
[2020-07-11] MEDS: EPA PO SCH (09:47)
[2020-07-11] MEDS: KRILL PO SCH (09:47)
[2020-07-11] MEDS: DHA PO SCH (09:47)
[2020-07-11] MEDS: Saccharomyces boulardii 250 MG CAP PO SCH (09:48)
[2020-07-11] MEDS: Abiraterone Acetate [Zytiga] 250 MG Tablet PO SCH (14:45)
[2020-07-11] MEDS: Docusate 100 MG CAP PO SCH (20:10)
[2020-07-12] MEDS: Levothyroxine Sodium 50 MCG TAB PO SCH (05:17)
[2020-07-12] MEDS: Allopurinol 100 MG TAB PO SCH (08:03)
[2020-07-12] MEDS: Acetaminophen ER (8hr) 650 MG TAB PO SCH ×2 (08:03→20:23)
[2020-07-12] MEDS: Famotidine 20 MG TAB PO SCH (08:04)
[2020-07-12] MEDS: Loratadine 10 MG TAB PO SCH (08:04)
[2020-07-12] MEDS: Venlafaxine HCl XR 75 MG CAP PO SCH (08:04)
[2020-07-12] MEDS: Vit A,C & E/Lutein/Minerals Tablet PO SCH ×2 (08:05→20:23)
[2020-07-12] MEDS: Calcium Carbonate 600 MG + Vit D TAB PO SCH (08:05)
[2020-07-12] MEDS: predniSONE 10 MG TAB PO SCH (08:05)
[2020-07-12] MEDS: Furosemide 40 MG TAB PO SCH (08:05)
[2020-07-12] MEDS: Saccharomyces boulardii 250 MG CAP PO SCH (08:05)
[2020-07-12] MEDS: Mometasone/Formoterol 200/5 60 PUFF INH SCH ×2 (08:08→20:36)
[2020-07-12] MEDS: PHOSPHO PO SCH (08:11)
[2020-07-12] MEDS: [UNRECOGNIZED DRUG - OTHER] PO SCH (08:11)
[2020-07-12] MEDS: EPA PO SCH (08:11)
[2020-07-12] MEDS: DHA PO SCH (08:11)
[2020-07-12] MEDS: KRILL PO SCH (08:11)
[2020-07-12] MEDS: AST PO SCH (08:11)
[2020-07-12] MEDS: Abiraterone Acetate [Zytiga] 250 MG Tablet PO SCH (13:50)
[2020-07-12] MEDS: Docusate 100 MG CAP PO SCH (20:23)
[2020-07-13] MEDS: Levothyroxine Sodium 50 MCG TAB PO SCH (05:30)
[2020-07-13] MEDS: Venlafaxine HCl XR 75 MG CAP PO SCH (09:08)
[2020-07-13] MEDS: Famotidine 20 MG TAB PO SCH (09:08)
[2020-07-13] MEDS: predniSONE 10 MG TAB PO SCH (09:08)
[2020-07-13] MEDS: Acetaminophen ER (8hr) 650 MG TAB PO SCH ×2 (09:09→21:29)
[2020-07-13] MEDS: Saccharomyces boulardii 250 MG CAP PO SCH (09:10)
[2020-07-13] MEDS: Vit A,C & E/Lutein/Minerals Tablet PO SCH ×2 (09:10→21:30)
[2020-07-13] MEDS: Multivitamin W/ Minerals 1 TAB PO SCH (09:11)
[2020-07-13] MEDS: Furosemide 40 MG TAB PO SCH (09:11)
[2020-07-13] MEDS: Calcium Carbonate 600 MG + Vit D TAB PO SCH (09:11)
[2020-07-13] MEDS: Loratadine 10 MG TAB PO SCH (09:12)
[2020-07-13] MEDS: KRILL PO SCH (09:13)
[2020-07-13] MEDS: EPA PO SCH (09:13)
[2020-07-13] MEDS: DHA PO SCH (09:13)
[2020-07-13] MEDS: PHOSPHO PO SCH (09:13)
[2020-07-13] MEDS: AST PO SCH (09:13)
[2020-07-13] MEDS: [UNRECOGNIZED DRUG - OTHER] PO SCH (09:13)
[2020-07-13] MEDS: Mometasone/Formoterol 200/5 60 PUFF INH SCH ×2 (09:14→21:31)
[2020-07-13] MEDS: Allopurinol 100 MG TAB PO SCH (09:20)
[2020-07-13] MEDS: Abiraterone Acetate [Zytiga] 250 MG Tablet PO SCH (14:35)
[2020-07-13] MEDS: Docusate 100 MG CAP PO SCH (21:32)
[2020-07-14] MEDS: Levothyroxine Sodium 50 MCG TAB PO SCH (05:56)
[2020-07-14] MEDS: DHA PO SCH (08:41)
[2020-07-14] MEDS: [UNRECOGNIZED DRUG - OTHER] PO SCH (08:41)
[2020-07-14] MEDS: EPA PO SCH (08:41)
[2020-07-14] MEDS: PHOSPHO PO SCH (08:41)
[2020-07-14] MEDS: AST PO SCH (08:41)
[2020-07-14] MEDS: KRILL PO SCH (08:41)
[2020-07-14] MEDS: Loratadine 10 MG TAB PO SCH (08:43)
[2020-07-14] MEDS: Allopurinol 100 MG TAB PO SCH (08:43)
[2020-07-14] MEDS: Saccharomyces boulardii 250 MG CAP PO SCH (08:43)
[2020-07-14] MEDS: Famotidine 20 MG TAB PO SCH (08:44)
[2020-07-14] MEDS: Venlafaxine HCl XR 75 MG CAP PO SCH (08:44)
[2020-07-14] MEDS: Vit A,C & E/Lutein/Minerals Tablet PO SCH ×2 (08:44→20:30)
[2020-07-14] MEDS: Acetaminophen ER (8hr) 650 MG TAB PO SCH ×2 (08:45→20:30)
[2020-07-14] MEDS: Multivitamin W/ Minerals 1 TAB PO SCH (08:46)
[2020-07-14] MEDS: Calcium Carbonate 600 MG + Vit D TAB PO SCH (08:46)
[2020-07-14] MEDS: Furosemide 40 MG TAB PO SCH (08:47)
[2020-07-14] MEDS: predniSONE 10 MG TAB PO SCH (08:47)
[2020-07-14] MEDS: Mometasone/Formoterol 200/5 60 PUFF INH SCH ×2 (08:49→20:31)
[2020-07-14] MEDS: Abiraterone Acetate [Zytiga] 250 MG Tablet PO SCH (14:29)
[2020-07-14] MEDS: Docusate 100 MG CAP PO SCH (20:35)
[2020-07-15] MEDS: Levothyroxine Sodium 50 MCG TAB PO SCH (05:08)
[2020-07-15] MEDS: Allopurinol 100 MG TAB PO SCH (09:25)
[2020-07-15] MEDS: Acetaminophen ER (8hr) 650 MG TAB PO SCH ×2 (09:25→21:20)
[2020-07-15] MEDS: Venlafaxine HCl XR 75 MG CAP PO SCH (09:25)
[2020-07-15] MEDS: Famotidine 20 MG TAB PO SCH (09:27)
[2020-07-15] MEDS: Multivitamin W/ Minerals 1 TAB PO SCH (09:27)
[2020-07-15] MEDS: predniSONE 10 MG TAB PO SCH (09:27)
[2020-07-15] MEDS: Saccharomyces boulardii 250 MG CAP PO SCH (09:27)
[2020-07-15] MEDS: Furosemide 40 MG TAB PO SCH (09:27)
[2020-07-15] MEDS: Calcium Carbonate 600 MG + Vit D TAB PO SCH (09:28)
[2020-07-15] MEDS: Vit A,C & E/Lutein/Minerals Tablet PO SCH ×2 (09:28→21:20)
[2020-07-15] MEDS: Loratadine 10 MG TAB PO SCH (09:28)
[2020-07-15] MEDS: Mometasone/Formoterol 200/5 60 PUFF INH SCH ×2 (09:28→21:21)
[2020-07-15] MEDS: PHOSPHO PO SCH (09:46)
[2020-07-15] MEDS: KRILL PO SCH (09:46)
[2020-07-15] MEDS: EPA PO SCH (09:46)
[2020-07-15] MEDS: [UNRECOGNIZED DRUG - OTHER] PO SCH (09:46)
[2020-07-15] MEDS: DHA PO SCH (09:46)
[2020-07-15] MEDS: AST PO SCH (09:46)
[2020-07-15] MEDS: Abiraterone Acetate [Zytiga] 250 MG Tablet PO SCH (14:17)
[2020-07-15] MEDS: Docusate 100 MG CAP PO SCH (21:20)
[2020-07-16] MEDS: Levothyroxine Sodium 50 MCG TAB PO SCH (05:43)
[2020-07-16 06:31] VITALS: BMI 31.8
[2020-07-16] MEDS: Famotidine 20 MG TAB PO SCH (09:33)
[2020-07-16] MEDS: Furosemide 40 MG TAB PO SCH (09:33)
[2020-07-16] MEDS: Calcium Carbonate 600 MG + Vit D TAB PO SCH (09:34)
[2020-07-16] MEDS: Acetaminophen ER (8hr) 650 MG TAB PO SCH ×2 (09:34→20:41)
[2020-07-16] MEDS: Loratadine 10 MG TAB PO SCH (09:34)
[2020-07-16] MEDS: Vit A,C & E/Lutein/Minerals Tablet PO SCH ×2 (09:34→20:41)
[2020-07-16] MEDS: predniSONE 10 MG TAB PO SCH (09:34)
[2020-07-16] MEDS: Saccharomyces boulardii 250 MG CAP PO SCH (09:34)
[2020-07-16] MEDS: Multivitamin W/ Minerals 1 TAB PO SCH (09:34)
[2020-07-16] MEDS: Venlafaxine HCl XR 75 MG CAP PO SCH (09:35)
[2020-07-16] MEDS: Allopurinol 100 MG TAB PO SCH (09:35)
[2020-07-16] MEDS: AST PO SCH (09:36)
[2020-07-16] MEDS: EPA PO SCH (09:36)
[2020-07-16] MEDS: DHA PO SCH (09:36)
[2020-07-16] MEDS: KRILL PO SCH (09:36)
[2020-07-16] MEDS: PHOSPHO PO SCH (09:36)
[2020-07-16] MEDS: [UNRECOGNIZED DRUG - OTHER] PO SCH (09:36)
[2020-07-16] MEDS: Mometasone/Formoterol 200/5 60 PUFF INH SCH ×2 (09:37→20:42)
[2020-07-16] MEDS: Abiraterone Acetate [Zytiga] 250 MG Tablet PO SCH (15:09)
[2020-07-16] MEDS: Docusate 100 MG CAP PO SCH (20:45)
[2020-07-17] MEDS: Levothyroxine Sodium 50 MCG TAB PO SCH (05:43)
[2020-07-17] MEDS: Famotidine 20 MG TAB PO SCH (08:48)
[2020-07-17] MEDS: Vit A,C & E/Lutein/Minerals Tablet PO SCH (08:48)
[2020-07-17] MEDS: Acetaminophen ER (8hr) 650 MG TAB PO SCH (08:48)
[2020-07-17] MEDS: Furosemide 40 MG TAB PO SCH (08:49)
[2020-07-17] MEDS: Allopurinol 100 MG TAB PO SCH (08:49)
[2020-07-17] MEDS: Calcium Carbonate 600 MG + Vit D TAB PO SCH (08:49)
[2020-07-17] MEDS: Saccharomyces boulardii 250 MG CAP PO SCH (08:49)
[2020-07-17] MEDS: Venlafaxine HCl XR 75 MG CAP PO SCH (08:50)
[2020-07-17] MEDS: predniSONE 10 MG TAB PO SCH (08:50)
[2020-07-17] MEDS: Multivitamin W/ Minerals 1 TAB PO SCH (08:51)
[2020-07-17] MEDS: Loratadine 10 MG TAB PO SCH (08:51)
[2020-07-17] MEDS: Mometasone/Formoterol 200/5 60 PUFF INH SCH (08:52)
[2020-07-17] MEDS: KRILL PO SCH (10:30)
[2020-07-17] MEDS: PHOSPHO PO SCH (10:30)
[2020-07-17] MEDS: EPA PO SCH (10:30)
[2020-07-17] MEDS: [UNRECOGNIZED DRUG - OTHER] PO SCH (10:30)
[2020-07-17] MEDS: DHA PO SCH (10:30)
[2020-07-17] MEDS: AST PO SCH (10:30)
--- NOTE | 2020-07-17 13:48 | DIS ---
DATE OF ADMISSION: 07/08/2020 DATE OF DISCHARGE: 07/17/2020 ADMISSION DIAGNOSES: 1. Left lower lobe pneumonia. 2. Generalized weakness. SECONDARY DIAGNOSES: 1. Metastatic prostate cancer. 2. Chronic obstructive pulmonary disease/asthma. 3. Hypertension. 4. History of congestive heart failure. 5. Hypothyroidism. 6. Gout. 7. Depression. 8. Dementia. PROCEDURES: None. HOSPITAL COURSE: This is an 84-year-old male who presented to our [facility] facility to participate with physical therapy and occupational therapy along with plan to complete oral antibiotics, status post acute admission at [facility]. He had presented there with complaints of shortness of breath and cough for which he was subsequently diagnosed with sepsis secondary to a left lower lobe pneumonia. His COVID testing was negative. He was initially treated with vancomycin and Zosyn IV, and transitioned to an oral course of Augmentin. Due to his generalized weakness, he transitioned to our [facility] facility and successfully worked with Physical Therapy and Occupational Therapy. At baseline, he ambulates with the assistance of a walker. He has improved enough in regard to his functional status to be able to return back to his home setting with plans for further therapy via outpatient physical therapy at [facility]. He has successfully completed his course of oral antibiotics and is otherwise back to his baseline. DISPOSITION: The patient may follow up with his primary care provider in approximately 1 week. He is to continue physical therapy at [facility]. He will discharge home at this time. DISCHARGE MEDICATIONS: 1. Prednisone 10 mg daily. 2. Tylenol p.r.n. 3. PreserVision AREDS 2 capsules b.i.d. 4. Vitamin B12 1000 mcg intramuscular each month. 5. Krill oil one tablet daily. 6. Zytiga 1000 mg daily. 7. Docusate sodium one capsule daily. 8. Levothyroxine daily. 9. Famotidine 20 mg daily. 10. Ventolin nebulizer 2.5 mg p.r.n. 11. Fluticasone/salmeterol 250-50 one puff b.i.d. 12. Lasix 40 mg daily. 13. Calcium carbonate plus vitamin D 1 tablet daily. 14. Allopurinol 300 mg daily. 15. Venlafaxine extended release 150 mg daily. 16. Senokot one tab q.h.s. p.r.n. 17. Daily multivitamin. 18. Toprol-XL 25 mg b.i.d. 19. Zyrtec 10 mg daily. 20. DuoNeb q.6 hours p.r.n. Total time spent in preparation of discharge of this patient greater than 30 minutes. Job ID: [id number]
[2020-07-17] MEDS: Abiraterone Acetate [Zytiga] 250 MG Tablet PO SCH (15:59)
[2020-07-17 16:42] VITALS: BP 128/63; TEMP 98.2
== END 2020-07-17 17:57 | disposition home or self-care (01) | DRG 947 ==
LOC: BURMED 13:40
PROVIDERS: ADMIT Family Medicine; ATTEND Family Medicine
DX: R53.81 Other malaise (principal); J18.9 Pneumonia, unspecified organism; J44.0 Chronic obstructive pulmonary disease with (acute) lower respiratory infection; I11.0 Hypertensive heart disease with heart failure; F32.9 Major depressive disorder, single episode, unspecified; E03.9 Hypothyroidism, unspecified; M10.9 Gout, unspecified; G47.30 Sleep apnea, unspecified; I50.9 Heart failure, unspecified; Z66 Do not resuscitate; F03.90 Unspecified dementia, unspecified severity, without behavioral disturbance, psychotic disturbance, mood disturbance, and anxiety; C61 Malignant neoplasm of prostate; Z85.46 Personal history of malignant neoplasm of prostate; Z88.8 Allergy status to other drugs, medicaments and biological substances; Z88.6 Allergy status to analgesic agent; Z79.899 Other long term (current) drug therapy; Z79.890 Hormone replacement therapy
CPT/HCPCS: 36415; 80053; 85025; 94640; 94664; J7512; J7620

== ENCOUNTER 2020-08-22 10:33 | Outpatient (CLI) | payer MEDICARE | END 2020-08-22 10:34 | disposition home or self-care (01) | LOC: BURRAD 10:33 | PROVIDERS: ATTEND Family Medicine | DX: R06.00 Dyspnea, unspecified (principal); I51.7 Cardiomegaly | CPT/HCPCS: 71046 ==

== ENCOUNTER 2020-11-16 09:10 | Emergency (ER) | payer OTHER, MEDICARE | END 2020-11-16 09:57 | disposition home or self-care (01) | LOC: BURERS 09:10 | DX: S70.02XA Contusion of left hip, initial encounter (principal); S50.312A Abrasion of left elbow, initial encounter; I49.9 Cardiac arrhythmia, unspecified; M10.9 Gout, unspecified; J44.9 Chronic obstructive pulmonary disease, unspecified; G47.30 Sleep apnea, unspecified; F17.220 Nicotine dependence, chewing tobacco, uncomplicated; F17.290 Nicotine dependence, other tobacco product, uncomplicated; Z79.899 Other long term (current) drug therapy; W01.0XXA Fall on same level from slipping, tripping and stumbling without subsequent striking against object, initial encounter ==

== ENCOUNTER 2021-04-18 09:22 | Inpatient (IN) | payer BC, MEDICARE ==
[2021-04-18 10:19] LABS: #Basophils 0.1 thou/uL (0.0-0.2); #Eosinphils 0.3 thou/uL (0.0-0.7); #Lymphocytes 2.6 thou/uL (1.20-3.40); #Monocytes 1.2 thou/uL (0.11-0.59); #Neutrophils 7.1 thou/uL (1.40-6.50); %Basophils 0.9 % (0.0-1.0); %Eosinophils 2.6 % (0.0-10.0); %Lymphocytes 22.8 % (21.0-51.0); %Monocytes 10.8 % (0.0-10.0); %Neutrophils 62.9 % (42.0-75.0); Hemoglobin 13.7 g/dL (14.0-18.0); Mean Corpuscular HGB CONC 33.3 g/dL (32.0-36.0); Mean Corpuscular Hemoglobin 34.3 pg (27.0-31.0); Mean Platelet Volume 7.4 fL (7.4-10.4); Platelet Count 258 thou/uL (130-400); RBC Distribution Width 13.7 % (11.5-14.5); Red Blood Cell (RBC) Count 3.99 mill/uL (4.70-6.10); White Blood Cell (WBC) Count 11.3 thou/uL (4.8-10.8)
[2021-04-18 10:35] LABS: ALT (SGPT) 16 U/L (8-55); AST (SGOT) 16 U/L (5-34); Albumin 3.5 g/dL (3.4-4.8); Alkaline Phosphatase 78 U/L (40-110); Anion Gap 15 mmol/L (10-20); BUN (Urea Nitrogen) 19 mg/dL (8.4-25.7); Bilirubin, Total 0.3 mg/dL (0.2-1.2); Calc. Creatinine Clearance 0 mL/min (70-130); Calcium 9.7 mg/dL (7.8-10.44); Carbon Dioxide 29 mmol/L (23-31); Chloride 99 mmol/L (98-107); Globulin 2.8 g/dL (2.4-3.5); Glucose 159 mg/dL (83-110); Potassium 4.1 mmol/L (3.5-5.1); Protein, Total 6.3 g/dL (5.8-8.1); Sodium 139 mmol/L (136-145)
[2021-04-18 10:40] LABS: MDiff Complete? YES; Macrocytosis MODERATE=16-30 cells (100X) (0-5/hpf); Platelet Morphology Comment Appears Adequate
[2021-04-18] MEDS ORDERED: cefTRIAXone\\ROCEPHIN 2 GM VIAL ONE (10:40)
[2021-04-18] MEDS ORDERED: Azithromycin 250 MG TAB ONE (11:51)
[2021-04-18 11:59] LABS: SARS-CoV-2 NAA Rapid Test Not Detected (NotDetected)
[2021-04-18] MEDS ORDERED: HYDROcodone/Acetaminophen 5/325 mg Tablet PO PRN ×2 (13:44→13:45)
[2021-04-18] MEDS ORDERED: Acetaminophen 325 MG TAB PO PRN (13:45)
[2021-04-18] MEDS ORDERED: Ondansetron ODT 4 MG TAB SL PRN (13:45)
[2021-04-18] MEDS ORDERED: Dextrose 5 %-0.45 % NaCl 1,000 ML IV SCH (13:45)
[2021-04-18] MEDS ORDERED: Ondansetron PF 4 MG/2 ML Vial IVP PRN (13:45)
[2021-04-18] MEDS ORDERED: Albuterol 200 PUFF (6.7GM INHALER) INH PRN (13:46)
[2021-04-18 14:31] VITALS: BMI 31.7
[2021-04-18] MEDS ORDERED: Albuterol Sulfate 2.5 mg/3 ml Neb NEB PRN (15:14)
[2021-04-18] MEDS ORDERED: FLU VACC QS2021-22(65YR UP)/PF 240 MCG/0.7 ML SYRINGE IM ONE (16:00)
[2021-04-18] MEDS ORDERED: Albuterol 200 PUFF (6.7GM INHALER) INH SCH (17:00)
[2021-04-18] MEDS: Mometasone/Formoterol 200/5 60 PUFF INH SCH (18:38)
[2021-04-18] MEDS ORDERED: Fluticasone/Salmeterol [Wixela 250-50 Inhub] INH SCH (21:00)
[2021-04-18] MEDS ORDERED: Senokot S 8.6-50 MG TAB PO PRN (21:00)
[2021-04-18] MEDS: Vit A,C & E/Lutein/Minerals Tablet PO SCH (22:13)
[2021-04-18] MEDS: Acetaminophen ER (8hr) 650 MG TAB PO SCH (22:13)
[2021-04-18] MEDS: Docusate 100 MG CAP PO SCH (22:14)
[2021-04-19 05:28] LABS: #Basophils 0.1 thou/uL (0.0-0.2); #Eosinphils 0.3 thou/uL (0.0-0.7); #Lymphocytes 2.6 thou/uL (1.20-3.40); #Monocytes 0.9 thou/uL (0.11-0.59); %Basophils 0.9 % (0.0-1.0); %Eosinophils 3.6 % (0.0-10.0); %Lymphocytes 32.8 % (21.0-51.0); %Monocytes 11.2 % (0.0-10.0); %Neutrophils 51.5 % (42.0-75.0); Mean Corpuscular HGB CONC 33.9 g/dL (32.0-36.0); Mean Corpuscular Hemoglobin 34.4 pg (27.0-31.0); Mean Platelet Volume 6.5 fL (7.4-10.4); Platelet Count 252 thou/uL (130-400); RBC Distribution Width 13.5 % (11.5-14.5); Red Blood Cell (RBC) Count 3.79 mill/uL (4.70-6.10); White Blood Cell (WBC) Count 7.8 thou/uL (4.8-10.8)
[2021-04-19 05:34] LABS: Lactic Acid 1.6 mmol/L (0.5-2.2)
[2021-04-19 05:46] LABS: ALT (SGPT) 15 U/L (8-55); AST (SGOT) 16 U/L (5-34); Albumin 3.4 g/dL (3.4-4.8); Alkaline Phosphatase 70 U/L (40-110); Anion Gap 13 mmol/L (10-20); BUN (Urea Nitrogen) 18 mg/dL (8.4-25.7); Bilirubin, Total 0.5 mg/dL (0.2-1.2); Calc. Creatinine Clearance 73 mL/min (70-130); Calcium 9.1 mg/dL (7.8-10.44); Carbon Dioxide 29 mmol/L (23-31); Chloride 102 mmol/L (98-107); Globulin 2.2 g/dL (2.4-3.5); Glucose 102 mg/dL (83-110); Potassium 4.2 mmol/L (3.5-5.1); Protein, Total 5.6 g/dL (5.8-8.1); Sodium 140 mmol/L (136-145)
[2021-04-19 06:09] LABS: Platelet Morphology Comment Appears Adequate; RBC Morphology Normal
[2021-04-19] MEDS: Mometasone/Formoterol 200/5 60 PUFF INH SCH ×3 (06:25→20:16)
[2021-04-19] MEDS: Levothyroxine Sodium 50 MCG TAB PO SCH (06:26)
[2021-04-19] MEDS: Allopurinol 100 MG TAB PO SCH (09:27)
[2021-04-19] MEDS: Famotidine 20 MG TAB PO SCH (09:27)
[2021-04-19] MEDS: Acetaminophen ER (8hr) 650 MG TAB PO SCH ×2 (09:28→20:17)
[2021-04-19] MEDS: Azithromycin 250 MG TAB PO SCH (09:29)
[2021-04-19] MEDS: Vit A,C & E/Lutein/Minerals Tablet PO SCH ×2 (09:29→20:17)
[2021-04-19] MEDS: predniSONE 20 MG TAB PO SCH (09:29)
[2021-04-19] MEDS: Venlafaxine HCl XR 75 MG CAP PO SCH (09:29)
[2021-04-19] MEDS: Furosemide 20 MG TAB PO SCH (09:30)
[2021-04-19] MEDS: Enoxaparin Sodium 40 MG/0.4 ML SYRINGE SC SCH (09:31)
[2021-04-19] MEDS: Loratadine 10 MG TAB PO SCH (09:32)
[2021-04-19] MEDS: Calcium Carbonate 600 MG + Vit D TAB PO SCH (09:32)
[2021-04-19] MEDS: Multivitamin W/ Minerals 1 TAB PO SCH (09:34)
[2021-04-19] MEDS: KRILL OIL 500 MG PO SCH (10:20)
[2021-04-19] MEDS: cefTRIAXone\\ROCEPHIN 1 GM in Sodium Chloride 0.9% 100 ML IVPB SCH (11:03)
[2021-04-19] MEDS ORDERED: Abiraterone Acetate [Zytiga] 250 MG PO SCH (14:30)
[2021-04-19] MEDS: Docusate 100 MG CAP PO SCH (20:18)
[2021-04-20 05:33] VITALS: BP 167/76; TEMP 98.4
[2021-04-20] MEDS: Levothyroxine Sodium 50 MCG TAB PO SCH (05:51)
[2021-04-20] MEDS: Mometasone/Formoterol 200/5 60 PUFF INH SCH (06:12)
[2021-04-20] MEDS: Azithromycin 250 MG TAB PO SCH (09:11)
[2021-04-20] MEDS: Vit A,C & E/Lutein/Minerals Tablet PO SCH (09:11)
[2021-04-20] MEDS: Furosemide 20 MG TAB PO SCH (09:11)
[2021-04-20] MEDS: Loratadine 10 MG TAB PO SCH (09:11)
[2021-04-20] MEDS: predniSONE 20 MG TAB PO SCH (09:11)
[2021-04-20] MEDS: Acetaminophen ER (8hr) 650 MG TAB PO SCH (09:12)
[2021-04-20] MEDS: Allopurinol 100 MG TAB PO SCH (09:12)
[2021-04-20] MEDS: Famotidine 20 MG TAB PO SCH (09:13)
[2021-04-20] MEDS: Multivitamin W/ Minerals 1 TAB PO SCH (09:13)
[2021-04-20] MEDS: Venlafaxine HCl XR 75 MG CAP PO SCH (09:13)
[2021-04-20] MEDS: KRILL OIL 500 MG PO SCH (09:15)
[2021-04-20] MEDS: Enoxaparin Sodium 40 MG/0.4 ML SYRINGE SC SCH (09:16)
[2021-04-20] MEDS: cefTRIAXone\\ROCEPHIN 1 GM in Sodium Chloride 0.9% 100 ML IVPB SCH (09:21)
[2021-04-20] MEDS: Calcium Carbonate 600 MG + Vit D TAB PO SCH (09:22)
[2021-04-21] MEDS ORDERED: predniSONE 10 MG TAB PO SCH (09:00)
== END 2021-04-20 12:20 | disposition home or self-care (01) | DRG 194 ==
LOC: BURERS 09:22 → BURMED 12:26
PROVIDERS: ADMIT Family Medicine; ATTEND Family Medicine
DX: J18.9 Pneumonia, unspecified organism (principal); J44.0 Chronic obstructive pulmonary disease with (acute) lower respiratory infection; M10.9 Gout, unspecified; F32.A Depression, unspecified; F17.220 Nicotine dependence, chewing tobacco, uncomplicated; E03.9 Hypothyroidism, unspecified; I50.9 Heart failure, unspecified; G47.33 Obstructive sleep apnea (adult) (pediatric); I11.0 Hypertensive heart disease with heart failure; C61 Malignant neoplasm of prostate; T14.8XXA Other injury of unspecified body region, initial encounter; W19.XXXA Unspecified fall, initial encounter; F03.90 Unspecified dementia, unspecified severity, without behavioral disturbance, psychotic disturbance, mood disturbance, and anxiety; Z20.822 Contact with and (suspected) exposure to COVID-19; Z88.8 Allergy status to other drugs, medicaments and biological substances; Z79.899 Other long term (current) drug therapy; Y92.9 Unspecified place or not applicable
CPT/HCPCS: 36415; 71045; 80053; 83605; 83880; 84484; 85025; 87040; 93005; 94640; 94664; 94760; J0696; J1650; J3490; J7512; J7620; U0002

== ENCOUNTER 2021-06-23 18:16 | Outpatient (CLI) | payer MEDICARE | END 2021-06-23 18:17 | disposition home or self-care (01) | LOC: BURRAD 18:16 | PROVIDERS: ATTEND Family Medicine | DX: M25.551 Pain in right hip (principal) ==

== ENCOUNTER 2022-01-10 20:59 | Emergency (ER) | payer MEDICARE | END 2022-01-10 21:27 | disposition home or self-care (01) | LOC: BURERS 20:59 | DX: S40.011A Contusion of right shoulder, initial encounter (principal); S70.02XA Contusion of left hip, initial encounter; I48.91 Unspecified atrial fibrillation; M10.9 Gout, unspecified; J44.9 Chronic obstructive pulmonary disease, unspecified; G47.30 Sleep apnea, unspecified; F17.220 Nicotine dependence, chewing tobacco, uncomplicated; F17.210 Nicotine dependence, cigarettes, uncomplicated; W18.30XA Fall on same level, unspecified, initial encounter ==